=== PATIENT | female | born 1975 | race Caucasian/White ===

== ENCOUNTER 2020-02-04 07:09 | Outpatient (REF) | payer OTHER, SELFPAY ==
[2020-02-04 08:01] LABS: MANUAL DIFF FLAG NO
[2020-02-04 08:09] LABS: Basophils Percent Auto 0.7 % (0-2); Eosinophils Absolute Auto 0.1 X10*3/uL (0.0-0.4); Eosinophils Percent Auto 2.1 % (0-4); Hematocrit 43.2 % (37-47); Hemoglobin 14.4 g/dl (12.0-16.0); Imm Gran Abs Auto 0.01 X10*3/uL (0.00-0.03); Imm Gran Pct Auto 0.2 % (0.0-0.4); Lymphocytes Absolute Auto 1.3 X10*3/uL (1.2-4.9); Lymphocytes Percent Auto 30.2 % (20-40); Mean Corpuscular HGB Conc 33.3 g/dl (31.0-35.0); Mean Corpuscular Hemoglobin 31.6 pg (27.0-33.0); Mean Corpuscular Volume 94.9 fL (80-98); Mean Platelet Volume 10.5 fL (9.4-12.3); Monocytes Absolute Auto 0.3 X10*3/uL (0.1-1.2); Monocytes Percent Auto 7.4 % (2-11); Neutrophils Absolute Auto 2.6 X10*3/uL (2.0-8.3); Neutrophils Percent Auto 59.4 % (45-73); Platelet Count 225 X10*3/uL (160-400); Red Blood Count 4.55 X10*6/uL (4.20-5.50); Red Cell Distribution Width 12.2 % (11.0-16.0); White Blood Count 4.3 X10*3/uL (4.8-10.8)
[2020-02-04 08:32] LABS: Alanine Aminotransferase 16 U/L (0-31); Albumin Level 4.7 g/dL (3.5-5.0); Alkaline Phosphatase 42 U/L (39-117); Aspartate Amino Transferase 19 U/L (5-31); Bilirubin Direct 0.3 mg/dL (0.0-0.5); Bilirubin Total 0.9 mg/dL (0.0-1.0)
== END 2020-02-04 07:10 | disposition home or self-care (01) ==
LOC: HO.LAB 07:09
PROVIDERS: PCP Internal Medicine; Visit Provider Psychiatry & Neurology Neurology
DX: H46.9 Unspecified optic neuritis (principal)
CPT/HCPCS: 36415; 80076; 85025

== ENCOUNTER 2020-05-12 08:22 | Outpatient (REF) | payer OTHER, SELFPAY ==
[2020-05-12 08:58] LABS: MANUAL DIFF FLAG NO
[2020-05-12 09:09] LABS: Basophils Percent Auto 0.4 % (0-2); Eosinophils Absolute Auto 0.1 X10*3/uL (0.0-0.4); Eosinophils Percent Auto 1.2 % (0-4); Hematocrit 40.8 % (37-47); Hemoglobin 13.6 g/dl (12.0-16.0); Imm Gran Abs Auto 0.02 X10*3/uL (0.00-0.03); Imm Gran Pct Auto 0.4 % (0.0-0.4); Lymphocytes Absolute Auto 1.3 X10*3/uL (1.2-4.9); Mean Corpuscular HGB Conc 33.3 g/dl (31.0-35.0); Mean Corpuscular Hemoglobin 30.8 pg (27.0-33.0); Mean Corpuscular Volume 92.5 fL (80-98); Mean Platelet Volume 9.4 fL (9.4-12.3); Monocytes Absolute Auto 0.5 X10*3/uL (0.1-1.2); Monocytes Percent Auto 10.4 % (2-11); Neutrophils Absolute Auto 3.2 X10*3/uL (2.0-8.3); Neutrophils Percent Auto 61.6 % (45-73); Platelet Count 287 X10*3/uL (160-400); Red Blood Count 4.41 X10*6/uL (4.20-5.50); Red Cell Distribution Width 12.5 % (11.0-16.0); White Blood Count 5.1 X10*3/uL (4.8-10.8)
[2020-05-12 09:28] LABS: Alanine Aminotransferase 19 U/L (0-31); Albumin Level 4.5 g/dL (3.5-5.0); Alkaline Phosphatase 39 U/L (39-117); Anion Gap 14 (12-20); Aspartate Amino Transferase 18 U/L (5-31); Bilirubin Total 0.4 mg/dL (0.0-1.0); Blood Urea Nitrogen 9 mg/dL (9-16); Calcium 9.1 mg/dL (8.4-10.2); Carbon Dioxide 27 mmol/L (22-29); Chloride 101 mmol/L (96-108); Cholesterol 163 mg/dL; Estimated Glomerular Filt Rate > 60; Glucose Random 93 mg/dL (60-115); HDL Cholesterol 83 mg/dL; LDL Cholesterol Calculated 74 mg/dl; Magnesium 2.1 mg/dL (1.6-2.6); Potassium 4.8 mmol/l (3.3-5.1); Sodium 137 mmol/L (135-145); Total Protein 6.7 g/dL (6.5-8.0); Triglycerides 31 mg/dL
[2020-05-12 09:30] LABS: Glucose Urine UA NEG (NEG); Leukocyte Esterase Urine NEG (NEG); Nitrite Urine NEG (NEG); PH 5.5 (5.0-8.0); Specific Gravity - Urine <= 1.005 (1.005-1.025); Urine Blood 1+ (NEG); Urine Ketones 5 MG/DL (NEG); Urine Protein NEG (NEG-TRACE)
[2020-05-12 09:31] LABS: Appearance Urine CLEAR; Color Urine STRAW
[2020-05-12 09:44] LABS: Bacteria Urine TRACE /LPF; RBC Urine 0-2 /HPF (0); Squamous Epithelial Cell Urine 2+ /LPF; WBC Urine 0-2 /HPF (0-4)
[2020-05-12 09:53] LABS: Free T4 (Free Thyroxine) 1.09 ng/dL (0.71-1.85); Thyroid Stimulating Hormone 2.62 uIU/mL (0.32-4.0); Vitamin D 25-OH Total 36.8 ng/mL (>30)
[2020-05-12 09:58] LABS: Erythrocyte Sedimentation Rate 2 MM/HR (0-20)
[2020-05-12 10:11] LABS: Folate > 20.0 ng/mL (> or = 4.0); Vitamin B12 745 pg/mL (200-900)
== END 2020-05-12 08:23 | disposition home or self-care (01) ==
LOC: HO.LAB 08:22
PROVIDERS: PCP Internal Medicine; Visit Provider Internal Medicine
DX: G35 Multiple sclerosis (principal); E78.00 Pure hypercholesterolemia, unspecified
CPT/HCPCS: 36415; 80053; 80061; 81001; 82306; 82607; 82746; 83735; 84439; 84443; 85025; 85652

== ENCOUNTER 2020-05-31 08:14 | Outpatient (REF) | payer OTHER, SELFPAY ==
[2020-05-31 09:11] LABS: Urine Cytology See Pathology rpt
[2020-05-31 09:37] LABS: Glucose Urine UA NEG (NEG); Leukocyte Esterase Urine NEG (NEG); Nitrite Urine NEG (NEG); PH 7.5 (5.0-8.0); Urine Blood NEG (NEG); Urine Ketones NEG (NEG); Urine Protein NEG (NEG-TRACE)
[2020-05-31 09:58] LABS: Appearance Urine HAZY; Color Urine YELLOW
[2020-05-31 10:05] LABS: Mucus Urine 3+ /LPF; RBC Urine 0 /HPF (0); Squamous Epithelial Cell Urine 3+ /LPF; WBC Urine 0 /HPF (0-4)
== END 2020-05-31 08:15 | disposition home or self-care (01) ==
LOC: HO.LAB 08:14
PROVIDERS: PCP Internal Medicine; Visit Provider Internal Medicine
DX: R31.9 Hematuria, unspecified (principal); G35 Multiple sclerosis
CPT/HCPCS: 81001; 88112

== ENCOUNTER 2020-07-25 11:48 | Outpatient (REF) | payer OTHER, SELFPAY ==
--- NOTE | ~2020-07-25 | MR_ITS ---
EXAMINATION: MR BRAIN WITHOUT AND WITH CONTRAST CLINICAL INFORMATION: Multiple sclerosis. COMPARISON: Brain MRI 09/07/2019. TECHNIQUE: Multiplanar, multisequence imaging of the brain was performed before and after the intravenous administration of 7 mL of Gadavist. FINDINGS: A mild burden of supratentorial demyelinating plaques are again identified. No definite new plaques are seen compared with the 09/07/2019 exam. The enhancement about the left periatrial plaques has resolved. No new enhancement has developed. Developmental venous anomalies are seen within the right frontal lobe and left inferior temporal lobe. There is no acute infarction. No diffusion restricting plaques are seen. The ventricles are stable in size and configuration without evidence of progressive volume loss. There is no mass or extra-axial fluid collection. The major arterial flow voids are preserved at the skull base. The extracranial structures are within normal limits. MR/MR head/brain wo/w con IMPRESSION: Stable appearance of mild burden of demyelinating plaques within the supratentorial white matter. No new plaques have developed. Interval resolution of enhancement about the left periatrial plaque. No enhancing plaques are currently present.
== END 2020-07-25 11:49 | disposition home or self-care (01) ==
LOC: HO.MRI 11:48
PROVIDERS: Visit Provider Psychiatry & Neurology Neurology
DX: G35 Multiple sclerosis (principal)
CPT/HCPCS: 70553; A9585

== ENCOUNTER 2020-07-31 08:47 | Outpatient (REF) | payer OTHER, SELFPAY ==
[2020-07-31 09:43] LABS: MANUAL DIFF FLAG NO
[2020-07-31 10:00] LABS: Basophils Percent Auto 0.6 % (0-2); Eosinophils Absolute Auto 0.1 X10*3/uL (0.0-0.4); Eosinophils Percent Auto 1.4 % (0-4); Hematocrit 40.6 % (37-47); Hemoglobin 13.6 g/dl (12.0-16.0); Imm Gran Abs Auto 0.01 X10*3/uL (0.00-0.03); Imm Gran Pct Auto 0.2 % (0.0-0.4); Lymphocytes Absolute Auto 1.2 X10*3/uL (1.2-4.9); Lymphocytes Percent Auto 23.6 % (20-40); Mean Corpuscular HGB Conc 33.5 g/dl (31.0-35.0); Mean Corpuscular Hemoglobin 30.8 pg (27.0-33.0); Mean Corpuscular Volume 92.1 fL (80-98); Mean Platelet Volume 10.2 fL (9.4-12.3); Monocytes Absolute Auto 0.4 X10*3/uL (0.1-1.2); Monocytes Percent Auto 8.4 % (2-11); Neutrophils Absolute Auto 3.4 X10*3/uL (2.0-8.3); Neutrophils Percent Auto 65.8 % (45-73); Platelet Count 268 X10*3/uL (160-400); Red Blood Count 4.41 X10*6/uL (4.20-5.50); Red Cell Distribution Width 12.3 % (11.0-16.0); White Blood Count 5.1 X10*3/uL (4.8-10.8)
[2020-08-13 22:57] LABS: JCV Antibody NEGATIVE; JCV Index Value 0.18
== END 2020-07-31 08:48 | disposition home or self-care (01) ==
LOC: HO.LAB 08:47
PROVIDERS: PCP Internal Medicine; Visit Provider Psychiatry & Neurology Neurology
DX: G35 Multiple sclerosis (principal)
CPT/HCPCS: 36415; 85025; 86711

== ENCOUNTER 2020-10-09 10:57 | Outpatient (REF) | payer OTHER, SELFPAY ==
[2020-10-09 12:20] LABS: HBS Num1 0.64 mIU/mL (0-7.99); HBc Num1 0.02 S/CO (0.00-0.79); Hepatitis B Core Antibody Nonreactive (Nonreactive); ~HepC Num1 0.06 S/CO (0.00-0.79); ~Hepatitis B Surface Antibody NONREACTIVE (Nonreactive); ~Hepatitis C Antibody Nonreactive (Nonreactive)
[2020-10-09 12:23] LABS: HBsAGNum1 0.22 S/CO (0.00-0.99); Hepatitis B Surface Antigen Negative (Negative)
[2020-10-09 12:58] LABS: Glucose Urine UA NEG (NEG); Leukocyte Esterase Urine NEG (NEG); Nitrite Urine NEG (NEG); Urine Blood 3+ (NEG); Urine Ketones NEG (NEG); Urine Protein NEG (NEG-TRACE)
[2020-10-09 12:59] LABS: Appearance Urine HAZY; Color Urine YELLOW
[2020-10-09 13:46] LABS: Mucus Urine 1+ /LPF; Squamous Epithelial Cell Urine 3+ /LPF; WBC Urine 0 /HPF (0-4)
[2020-10-10 22:18] LABS: Rubella IgG Antibody 1.88 Index
[2020-10-13 11:53] LABS: TS Negative Control Passed; TS Panel A 0; TS Panel B 0; TS Positive Control Passed; TSpotTB Negative (SeeBelow)
== END 2020-10-09 10:58 | disposition home or self-care (01) ==
LOC: HO.LAB 10:57
PROVIDERS: PCP Internal Medicine; Visit Provider Internal Medicine
DX: Z02.0 Encounter for examination for admission to educational institution (principal); R94.5 Abnormal results of liver function studies; R31.9 Hematuria, unspecified
CPT/HCPCS: 36415; 81001; 86481; 86704; 86706; 86735; 86762; 86765; 86787; 86803; 87340

== ENCOUNTER 2022-01-02 08:20 | Outpatient (REF) | payer BC, SELFPAY ==
[2022-01-02 08:49] LABS: MANUAL DIFF FLAG NO
[2022-01-02 10:26] LABS: Basophils Percent Auto 0.5 % (0-2); Eosinophils Absolute Auto 0.2 X10*3/uL (0.0-0.4); Eosinophils Percent Auto 3.3 % (0-4); Hematocrit 45.2 % (37.0-47.0); Imm Gran Abs Auto 0.02 X10*3/uL (0.00-0.03); Imm Gran Pct Auto 0.3 % (0.0-0.4); Lymphocytes Absolute Auto 0.9 X10*3/uL (1.2-4.9); Lymphocytes Percent Auto 13.7 % (20-40); Mean Corpuscular HGB Conc 33.2 g/dl (31.0-35.0); Mean Corpuscular Hemoglobin 30.4 pg (27.0-33.0); Mean Corpuscular Volume 91.7 fL (80.0-98.0); Mean Platelet Volume 9.9 fL (9.4-12.3); Monocytes Absolute Auto 0.7 X10*3/uL (0.1-1.2); Monocytes Percent Auto 10.8 % (2-11); Neutrophils Absolute Auto 4.5 x10*3/uL (2.0-8.3); Neutrophils Percent Auto 71.4 % (45-73); Platelet Count 205 X10*3/uL (160-400); Red Blood Count 4.93 X10*6/uL (4.20-5.50); Red Cell Distribution Width 12.3 % (11.0-16.0); White Blood Count 6.3 X10*3/uL (4.8-10.8)
[2022-01-02 10:32] LABS: Appearance Urine Clear; Color Urine Yellow; Glucose Urine UA Negative (Negative); Leukocyte Esterase Urine Trace (Negative); Nitrite Urine Negative (Negative); PH 7.5 (5.0-9.0); Specific Gravity - Urine <= 1.005 (1.005-1.025); Urine Blood Negative (Negative); Urine Ketones Negative (Negative); Urine Protein Negative (Neg-Trace)
[2022-01-02 10:37] LABS: Bacteria Urine None Seen (None Seen); Hyaline Casts Urine 0-2 /LPF (0-2); RBC Urine 0-2 /HPF (0-2); Squamous Epithelial Cell Urine 0-2 /HPF (0-2); WBC Urine 0-5 /HPF (0-5)
[2022-01-02 11:11] LABS: Free T4 (Free Thyroxine) 0.99 ng/dL (0.71-1.85); Thyroid Stimulating Hormone 1.78 uIU/mL (0.32-4.0); Vitamin D 25-OH Total 36.6 ng/mL (>30)
[2022-01-02 11:15] LABS: Alanine Aminotransferase 21 U/L (0-31); Albumin Level 4.7 g/dL (3.5-5.0); Alkaline Phosphatase 51 U/L (39-117); Anion Gap 18 (12-20); Aspartate Amino Transferase 19 U/L (5-31); Bilirubin Total 0.6 mg/dL (0.0-1.0); Blood Urea Nitrogen 9 mg/dL (9-16); Calcium 9.3 mg/dL (8.4-10.2); Carbon Dioxide 24 mmol/L (22-29); Chloride 101 mmol/L (96-108); Cholesterol 192 mg/dL; Estimated Glomerular Filt Rate > 60; Glucose Random 69 mg/dL (60-115); HDL Cholesterol 71 mg/dL; LDL Cholesterol Calculated 114 mg/dl; Potassium 4.3 mmol/L (3.3-5.1); Sodium 139 mmol/L (135-145); Total Protein 7.5 g/dL (6.5-8.0); Triglycerides 35 mg/dL
[2022-01-02 16:12] LABS: Folate > 20.0 ng/mL (> or = 4.0); Vitamin B12 510 pg/mL (200-900)
== END 2022-01-02 08:21 | disposition home or self-care (01) ==
LOC: HO.LAB 08:20
PROVIDERS: PCP Internal Medicine; Visit Provider Internal Medicine
DX: G35 Multiple sclerosis (principal); E78.00 Pure hypercholesterolemia, unspecified
CPT/HCPCS: 36415; 80053; 80061; 81001; 82306; 82607; 82746; 84439; 84443; 85025

== ENCOUNTER 2022-08-30 06:24 | Day surgery (SDC) | payer BC, SELFPAY ==
--- NOTE | 2022-08-27 13:21 | HO.ANESPROP2 ---
Documented by User: Sommer Luevano NP 08/27/22 13:21 HPI - Anesthesia Eval Consult details Narrative: 47yo F for Colonoscopy PMFSH Active Problems Active Problems: All Active Problems (Updated 08/27/22 @ 12:36 by Corinne Troy RN) Annual physical exam (Acute) Hematuria (Acute) School health examination (Acute) Breast cancer screening by mammogram (Acute) Colon cancer screening (Acute) Multiple sclerosis (Acute) Past Medical History Medical History Allergic reaction Kidney stone Leukopenia Multiple sclerosis Optic neuritis Family History Family History (Updated 12/08/21 @ 16:54 by Norberto Castillo MD) Father Myocardial infarction Mother No problems noted. Paternal Aunt Breast cancer Heart disease Maternal Grandmother No problems noted. Paternal Uncle Heart disease Surgical History Surgical History H/O arthroscopy of left knee History of section Uterine polyp Varicose veins of both lower extremities Social History Social History (Updated 12/08/21 @ 16:55 by Norberto Castillo MD) Housing: House Alcohol intake: current Alcohol intake frequency: a few times a week Patient Tobacco Use Status: Never used Tobacco Second Hand Smoke Exposure: No Use of substances other than those prescribed or required for medical reasons: Yes Substance Use Type Other:: cbd Substance Use Frequency: Daily Are you DNR?: No Advance Directives: No Advance Directives Information Provided: Yes service: No Current occupational status: unemployed Cognitive needs: No Hearing needs: No Vision needs: Yes Meds Allergies Allergy/AdvReac Type Severity Reaction Status Date / Time oxycodone AdvReac Intermediate dizzy Verified 08/30/22 06:59 Home Medications Medication Instructions Recorded Confirmed Last Taken Type cholecalciferol (vitamin D3) 25 25 mcg PO DAILY 01/23/20 08/30/22 08/23/22 History mcg (1,000 unit) capsule flaxseed oil 1,000 mg capsule 1,000 mg PO DAILY 01/23/20 08/30/22 08/23/22 History aspirin 81 mg tablet,delayed 81 mg PO DAILY 04/28/20 08/30/22 08/23/22 History release calcium carbonate 600 mg calcium 600 mg PO DAILY 04/28/20 08/30/22 08/23/22 History (1,500 mg) tablet cyanocobalamin (vitamin B-12) 1,000 mcg PO DAILY 04/28/20 08/30/22 08/23/22 History 1,000 mcg capsule multivitamin 1 tab PO DAILY 04/28/20 08/30/22 08/23/22 History omega-3 acid ethyl esters 1 gram 1 cap PO DAILY 04/28/20 08/30/22 08/23/22 History capsule levonorgestrel-ethinyl estradiol 1 tab PO DAILY 08/30/22 08/30/22 Unknown History 0.1 mg-20 mcg tablet (Vienva) natalizumab 300 mg/15 mL 300 mg IV Q4W 08/30/22 08/30/22 Unknown History intravenous solution (Tysabri) Exam Exam Date and Time: August 27, 2022 132 Assessment and Plan Assessment Anesthesia Assessment: Chart Reviewed Documented by User: Lilia Olson DO 08/30/22 07:24 [facility] Past Medical History Medical History Allergic reaction Kidney stone Leukopenia Multiple sclerosis Optic neuritis Family History Family History (Updated 12/08/21 @ 16:54 by Norberto Castillo MD) Father Myocardial infarction Mother No problems noted. Paternal Aunt Breast cancer Heart disease Maternal Grandmother No problems noted. Paternal Uncle Heart disease Family history of problems with anesthesia: No Surgical History Surgical History H/O arthroscopy of left knee History of section Uterine polyp Varicose veins of both lower extremities History of Problems with Anesthesia: No Social History Social History (Updated 12/08/21 @ 16:55 by Norberto Catsillo MD) Housing: House Alcohol intake: current Alcohol intake frequency: a few times a week Patient Tobacco Use Status: Never used Tobacco Second Hand Smoke Exposure: No Use of substances other than those prescribed or required for medical reasons: Yes Substance Use Type Other:: cbd Substance Use Frequency: Daily Are you DNR?: No Advance Directives: No Advance Directives Information Provided: Yes service: No Current occupational status: unemployed Cognitive needs: No Hearing needs: No Vision needs: Yes Meds Allergies Allergy/AdvReac Type Severity Reaction Status Date / Time oxycodone AdvReac Intermediate dizzy Verified 08/30/22 06:59 Home Medications Medication Instructions Recorded Confirmed Last Taken Type cholecalciferol (vitamin D3) 25 25 mcg PO DAILY 01/23/20 08/30/22 08/23/22 History mcg (1,000 unit) capsule flaxseed oil 1,000 mg capsule 1,000 mg PO DAILY 01/23/20 08/30/22 08/23/22 History aspirin 81 mg tablet,delayed 81 mg PO DAILY 04/28/20 08/30/22 08/23/22 History release calcium carbonate 600 mg calcium 600 mg PO DAILY 04/28/20 08/30/22 08/23/22 History (1,500 mg) tablet cyanocobalamin (vitamin B-12) 1,000 mcg PO DAILY 04/28/20 08/30/22 08/23/22 History 1,000 mcg capsule multivitamin 1 tab PO DAILY 04/28/20 08/30/22 08/23/22 History omega-3 acid ethyl esters 1 gram 1 cap PO DAILY 04/28/20 08/30/22 08/23/22 History capsule levonorgestrel-ethinyl estradiol 1 tab PO DAILY 08/30/22 08/30/22 Unknown History 0.1 mg-20 mcg tablet (Vienva) natalizumab 300 mg/15 mL 300 mg IV Q4W 08/30/22 08/30/22 Unknown History intravenous solution (Tysabri) Exam Exam Date and Time: August 30, [id number] Airway Mallampati Class: III TM Dist: >3cm Neck ROM: Full Loose/Missing/Broken Teeth: No Heart: S1S2 Lungs: CTAB Assessment and Plan Assessment Anesthesia Assessment: Anesthesia Plan Discussed and Chart Reviewed Final Anesthetic Review Family History of Problems with Anesthesia: No History of Problems with Anesthesia: No NPO: Yes ASA Class: II Final Preanesthetic Review: No Changes in Pt Med Stat, Meds/Allgs Chart Reviewed and Consent Obtained/Reviewed Patient Risk: Low Procedure Risk: Low Anesthetic Plan Anesthetic Plan: MAC: and Agree w/ Assess. and Plan Disposition: Standard PACU
[2022-08-30 06:47] LABS: UPreg QC Valid YES; Urine Pregnancy NEGATIVE (NEGATIVE)
[2022-08-30 07:01] VITALS: BMI 31.2
[2022-08-30 07:06] VITALS: BP 123/73; PULSE 75; RESP 15; TEMP 36.9; O2SAT 98
[2022-08-30] MEDS: Lactated Ringers 1,000 ML 100 ML IVCONT (07:18)
[2022-08-30 08:20] VITALS: BP 117/63; PULSE 77; RESP 16; TEMP 36.7; O2SAT 98
--- NOTE | 2022-08-30 08:25 | PM.OP ---
Brief Operative Note Date of Service: 08/30/22 Pre-op diagnosis: Screening Post-op diagnosis: other (Diverticulosis) Procedure: Colonoscopy to the cecum and TI Surgeon: Carlitos Smith Anesthesia: MAC Was an Director Network Development used for this Procedure?: No Estimated blood loss (mL): 0 Pathology: none sent Condition: stable Disposition: PACU
[2022-08-30 08:35] VITALS: BP 108/79; PULSE 80; RESP 16; TEMP 36.7; O2SAT 100
--- NOTE | 2022-09-01 09:28 | OP_ITS ---
DATE OF SERVICE: 08/30/2022 SURGEON: Carlitos Smith MD INDICATIONS: The patient presents for evaluation of colorectal cancer screening. Full consent was obtained from her for this, including risks of bleeding and perforation. PREOPERATIVE DIAGNOSIS: Colorectal cancer screening. POSTOPERATIVE DIAGNOSIS: PROCEDURE PERFORMED: Colonoscopy to the cecum and terminal ileum. ESTIMATED BLOOD LOSS: COMPLICATIONS: ANESTHESIA: Monitored anesthesia care. ASSISTANTS: SPECIMENS: POSTOPERATIVE DIAGNOSES: Colorectal cancer screening, sigmoid diverticulosis and internal hemorrhoids. DESCRIPTION OF PROCEDURE: The patient was placed in the left lateral decubitus position. The digital rectal exam revealed no abnormalities. The Olympus video pediatric colonoscope was entered into the rectum and advanced easily to the cecum. Once in the cecum, I did identify a normal-appearing cecal pouch with appendiceal orifice and a normal-appearing ileocecal valve. The terminal ileum was cannulated and appeared normal. The scope was withdrawn back in the colon. The entire cecum and ileocecal valve appeared normal without any sign of mass nor ulceration. Scope was then slowly withdrawn assessing all mucosal surfaces carefully. Preparation was excellent. I did not visualize any sign of polyps, colitis, nor angiodysplasia. There was a mild amount of sigmoid diverticulosis. In the rectum, the scope was retroflexed visualizing internal hemorrhoids, but no other pathology. The rectal mucosa appeared normal. The scope was straightened out and withdrawn from the patient. She tolerated the procedure well and was returned to the recovery area in stable condition. IMPRESSION: 1. Diverticulosis. 2. Internal hemorrhoids. PLAN: Given today's negative exam and negative family history, I would recommend a followup colonoscopy in 10 years for further screening. She will otherwise see me on a p.r.n. basis. MD MICHELLE Ramires/KATTY / [id number] MTDSandra
== END 2022-08-30 08:56 | disposition home or self-care (01) ==
PROVIDERS: Nurse Practitioner; PCP Internal Medicine; Visit Provider Internal Medicine
PROC: 0DJD8ZZ Inspection of Lower Intestinal Tract, Via Natural or Artificial Opening Endoscopic (ICD-10-PCS; CPT 45378; principal; 2022-08-30 07:30)
DX: Z12.11 Encounter for screening for malignant neoplasm of colon (principal); K57.30 Diverticulosis of large intestine without perforation or abscess without bleeding; K64.8 Other hemorrhoids; G35 Multiple sclerosis; Z79.899 Other long term (current) drug therapy; Z87.442 Personal history of urinary calculi
CPT/HCPCS: 45378; 81025

== ENCOUNTER 2022-12-30 13:40 | Outpatient (AMB) | payer BC, SELFPAY ==
[2022-12-30 13:44] VITALS: BP 110/68; PULSE 77; O2SAT 99; BMI 34.0
--- NOTE | 2022-12-30 13:44 | MHC.PC.OV ---
Vital Signs 12/30/22 13:44 Height 5 ft Weight 174 lb BMI 34.0 BP 110/68 Blood Pressure Location Lt brachial Position Sitting Pulse 77 Pulse Source Pulse Oximeter Pulse Oximetry (%) 99 Oxygen Delivery Method Room Air Intake Visit Reasons: PE Allergies oxycodone Adverse Reaction (Intermediate, Verified 08/30/22 06:59) dizzy Medication List - Last Reconciled 12/30/22 by Norberto Castillo MD calcium carbonate 600 mg PO DAILY cholecalciferol (vitamin D3) 25 mcg PO DAILY cyanocobalamin (vitamin B-12) 1,000 mcg PO DAILY epinephrine 0.3 mg (0.3 mL) IM Q10M PRN flaxseed oil 1,000 mg PO DAILY levonorgestrel-ethinyl estrad 0.1-20 mg-mcg (Vienva) 1 tab PO DAILY multivitamin 1 tab PO DAILY natalizumab (Tysabri) 300 mg IV Q4W omega-3 acid ethyl esters 1 cap PO DAILY Tobacco use date assessed: 12/30/22 HPI PE HPI Details 47-year-old obese female with a history of multiple sclerosis coming in for physical exam. Last seen last year and was advised colon cancer screening as well as breast cancer screening. Patient was advised blood work also. Patient had colonoscopy done August 2022 10 years. Did in the notes also patient was seen by Rheumatology for the positive MAGALY February 2022. Patient was seen by the neurology's for multiple sclerosis placed on Tysabri and Vumerity. Patient in September had an MRI of the cervical spine showing stable high T2 signal lesions in the C3-C4 and T1 vertebral bodies compatible with multiple sclerosis. Neurology [facility] stopped the vumerity. due to lesions on spine. patient has not seen rheumatology. Patient has incotinence and was placed on oxybutinin had [place] and so stopped. hold off med. tripped on fall 2 months ago , feels unbalance has night sweats [facility] Medical History (Updated 12/30/22 @ 14:19 by Norberto Castillo MD) Colon cancer screening School health examination Annual physical exam Kidney stone Allergic reaction Leukopenia Optic neuritis Multiple sclerosis Surgical History Varicose veins of both lower extremities Uterine polyp History of section H/O arthroscopy of left knee Family History (Updated 12/08/21 @ 16:54 by Norberto Castillo MD) Father Myocardial infarction Mother No problems noted. Paternal Aunt Breast cancer Heart disease Maternal Grandmother No problems noted. Paternal Uncle Heart disease Social History (Updated 12/30/22 @ 14:16 by Norberto Castillo MD) Housing: House Alcohol intake: current Alcohol intake frequency: a few times a week Patient Tobacco Use Status: Never used Tobacco Second Hand Smoke Exposure: No service: No Current occupational status: unemployed Cognitive needs: No Hearing needs: No Vision needs: Yes Questionnaire PHQ-9 Over the last 2 weeks, how often have you been bothered by any of the following problems? 1. Little interest or pleasure in doing things: not at all 2. Feeling down, depressed, or hopeless: not at all 3. Trouble falling or staying asleep, or sleeping too much: not at all 4. Feeling tired or having little energy: not at all 5. Poor appetite or overeating: not at all 6. Feeling bad about yourself - or that you are a failure or have let yourself or your family down: not at all 7. Trouble concentrating on things, such as reading the newspaper or watching television: not at all 8. Moving or speaking so slowly that other people could have noticed. Or the opposite - being so fidgety or restless that you have been moving around a lot more than usual: not at all 9. Thoughts that you would be better off or of hurting yourself in some way: not at all Total score: 0 Depression Screening Interpretation: Negative Source: Developed by Drs. Carlitos Posey, Pretty Sotomayor, Remy Lund and colleagues, with an educational lea from [employer]. Thrive Questionnaire Date Thrive assessed: 12/30/22 I am a: Patient What is your living situation today?: I have a steady place to live Within the past 12 months, did the food you bought not last and you didn't have the money to get more?: Never true Within the past 12 months, did you worry whether your food would run out before you got money to buy more?: Never true AUDIT C Alcohol Use Questionnaire (AUDIT-C) 1. How often do you have a drink containing alcohol?: 2-3 times a week 2. How many drinks containing alcohol do you have on a typical day when you are drinking?: 1 or 2 3. How often do you have six or more drinks on one occasion?: Never Total Score: 3 NORMA-7 AMB Questionnaire NORMA-7 Date NORMA - 7 assessed: 12/30/22 Feeling nervous, anxious, or on edge: 0 = Not at all Not being able to stop or control worryin = Not at all Worrying too much about different things: 0 = Not at all Trouble relaxin = Not at all Being so restless that it is hard to sit still: 0 = Not at all Becoming easily annoyed or irritable: 0 = Not at all Feeling afraid as if something awful might happen: 0 = Not at all Total NORMA-7 score (0-4 normal; 5-9 mild; 10-14 moderate; 15-21 severe): 0 Source: Developed by Drs. Carlitos Posey, Pretty Sotomayor, Remy Lund and colleagues, with an educational lea from [employer]. Review of Systems Const Denies poor appetite and Denies weakness Eyes Denies no additional complaints ENT Reports Normal hearing present, Denies dizziness, Denies nasal congestion, Denies tinnitus and Denies sore throat Card Denies chest pain, Denies syncope, Denies rapid heart rate and Denies dyspnea Resp Denies cough and Denies dyspnea GI Denies change in stool character, Reports constipation, Denies diarrhea, Denies nausea and Denies vomiting Denies urinary frequency, Denies difficulty voiding and Denies dysuria Neuro Reports Normal hearing present, Denies confusion, Denies dizziness, Denies syncope and Denies weakness Psych Denies confusion Physical exam (Primary Care) Vital Signs: Last Vital Signs Pulse 77 12/30/22 13:44 BP 110/68 12/30/22 13:44 Pulse Ox 99 12/30/22 13:44 Oxygen Delivery Method Room Air 12/30/22 13:44 BMI result Body Mass Index 34.0 Tobacco/Smoking Status: Tobacco use Status Tobacco use date assessed 12/30/22 12/30/22 13:49 Patient Tobacco Use Status Never used Tobacco 12/30/22 13:44 PHQ-9: PHQ-9 Score PHQ-9: Total score 0 12/30/22 13:49 Depression Screening Interpretation: Negative Thrive Assessment: Date of Thrive Assessment Date Thrive assessed 12/30/22 12/30/22 13:49 Const General: No confusion Orientation/consciousness: No confusion HENMT Head: Yes normocephalic Ears: external ears normal and TM's normal bilaterally Face and sinus: Yes normal facial exam Mouth: moist mucous membranes Throat: Yes tonsils normal Eyes Conjunctivae: conjunctivae normal Pupils: Equal, round and reactive pupils present and Pupil accommodation reflex normal Direct Ophthalmoscopy: normal light reflex Neck Neck: No lymphadenopathy Thyroid: Thyroid normal Chest Chest palpation & inspection: normal inspection of the chest Resp Effort & Inspection: normal respiratory effort and no audible wheezes Auscultation: clear to auscultation bilaterally, no crackles, no wheezes and lung sounds not diminished Cardio Rate: regular rate Rhythm: regular rhythm Peripheral pulses: radial pulses present and dorsalis pedis present GI Palpation (GI): no masses Auscultation: normal bowel sounds and normoactive bowel sounds Rectal Exam - Female: deferred Skin General skin exam: no rashes or lesions noted Rashes: no rashes Neuro General: No confusion Cranial nerves: Yes Equal, round and reactive pupils present and Yes Normal hearing present Cognition (Neuro): normal cognition Gait exam (Neuro): Normal gait present Motor exam (neuro): 5/5 motor strength present throughout Deep tendon reflexes (DTR's): Right brachioradialis reflex intensity grade: 2+, Left brachioradialis reflex intensity grade: 2+, Right patellar reflex intensity grade: 2+ and Left patellar reflex intensity grade: 2+ Extrem General: No edema Assessment and Plan Assessment & Plan (1) Annual physical exam: Code(s): Z00.00 - Encounter for general adult medical examination without abnormal findings (2) Multiple sclerosis: Comment: January 2018 vision problem MRI July 2020 Code(s): G35 - Multiple sclerosis Plan: Continue to follow-up with Neurology patient has been placed on Tysabri (3) Positive MAGALY (antinuclear antibody): Code(s): R76.8 - Other specified abnormal immunological findings in serum Plan: Patient was referred to rheumatology (4) Hearing difficulty: Code(s): H91.90 - Unspecified hearing loss, unspecified ear Orders: Orders Complete Blood Count Auto Diff Today G35 - Multiple sclerosis Comprehensive Met. Panel Today G35 - Multiple sclerosis Thyroid Stimulating Hormone Today G35 - Multiple sclerosis Lipid Panel Today E78.00 - Pure hypercholesterolemia, unspecified, G35 - Multiple sclerosis UA w Microscopic Today G35 - Multiple sclerosis Free T4 (Free Thyroxine) Today G35 - Multiple sclerosis Vitamin B12 and Folate Today G35 - Multiple sclerosis Vitamin D 25-OH Total Today G35 - Multiple sclerosis Referrals Speech and Hearing Referral H91.90 - Unspecified hearing loss, unspecified ear Coding Level of Care Code Est Pt Prev Care 40-64y(40024) Diagnoses Annual physical exam Z00.00 Multiple sclerosis G35 Positive MAGALY (antinuclear antibody) R76.8 Hearing difficulty H91.90
== END 2022-12-30 14:39 | disposition home or self-care (01) ==
PROVIDERS: PCP Internal Medicine; Visit Provider Internal Medicine
DX: Z00.00 Encounter for general adult medical examination without abnormal findings (principal); G35 Multiple sclerosis; R76.8 Other specified abnormal immunological findings in serum; H91.90 Unspecified hearing loss, unspecified ear
CPT/HCPCS: 99396

== ENCOUNTER 2023-01-22 08:39 | Outpatient (REF) | payer BC, SELFPAY ==
[2023-01-22 10:06] LABS: Appearance Urine Clear; Color Urine Yellow; Glucose Urine UA Negative (Negative); Leukocyte Esterase Urine Trace (Negative); Nitrite Urine Negative (Negative); PH 7.5 (5.0-9.0); Specific Gravity - Urine <= 1.005 (1.005-1.025); UMIC TRIGGER UA YES; Urine Blood Negative (Negative); Urine Ketones Negative (Negative); Urine Protein Negative (Neg-Trace)
[2023-01-22 10:12] LABS: Bacteria Urine None Seen (None Seen); Hyaline Casts Urine 0-2 /LPF (0-2); RBC Urine 0-2 /HPF (0-2); Squamous Epithelial Cell Urine 0-2 /HPF (0-2); WBC Urine 0-5 /HPF (0-5)
[2023-01-22 10:27] LABS: Alanine Aminotransferase 12 U/L (0-31); Albumin Level 4.5 g/dL (3.5-5.0); Alkaline Phosphatase 64 U/L (39-117); Aspartate Amino Transferase 14 U/L (5-31); Bilirubin Direct 0.2 mg/dL (0.0-0.5); Bilirubin Total 0.5 mg/dL (0.0-1.0); Total Protein 7.3 g/dL (6.5-8.0)
[2023-01-22 10:30] LABS: Alanine Aminotransferase 13 U/L (0-31); Albumin Level 4.5 g/dL (3.5-5.0); Alkaline Phosphatase 61 U/L (39-117); Aspartate Amino Transferase 18 U/L (5-31); Bilirubin Total 0.5 mg/dL (0.0-1.0); Blood Urea Nitrogen 13 mg/dL (9-16); Calcium 9.2 mg/dL (8.4-10.2); Chloride 104 mmol/L (96-108); Cholesterol 184 mg/dL (<200); Estimated Glomerular Filt Rate > 60; Glucose Random 85 mg/dL (60-115); HDL Cholesterol 59 mg/dL (>40); LDL Cholesterol Calculated 115 mg/dL (<100); Potassium 4.6 mmol/L (3.3-5.1); Sodium 137 mmol/L (135-145); Total Protein 7.6 g/dL (6.5-8.0); Triglycerides 54 mg/dL (<150)
[2023-01-22 10:41] LABS: Anion Gap 16 (12-20); Free T4 (Free Thyroxine) 0.95 ng/dL (0.71-1.85); Thyroid Stimulating Hormone 1.12 uIU/mL (0.32-4.0); Vitamin D 25-OH Total 36.8 ng/mL (>30)
[2023-01-22 10:55] LABS: Carbon Dioxide 21 mmol/L (22-29)
[2023-01-22 11:00] LABS: Folate 13.9 ng/mL (> or = 4.0); Vitamin B12 480 pg/mL (200-900)
[2023-01-31 05:03] LABS: JCV Antibody NEGATIVE; JCV Index Value 0.16
== END 2023-01-22 08:40 | disposition home or self-care (01) ==
LOC: HO.LAB 08:39
PROVIDERS: PCP Internal Medicine; Referring Provider Internal Medicine; Visit Provider Physician Assistant
DX: G35 Multiple sclerosis (principal); E78.00 Pure hypercholesterolemia, unspecified; Z79.899 Other long term (current) drug therapy
CPT/HCPCS: 36415; 80053; 80061; 80076; 81001; 82248; 82306; 82607; 82746; 84439; 84443; 86711

== ENCOUNTER 2023-05-10 08:58 | Outpatient (REF) | payer BC, SELFPAY | END 2023-05-10 08:59 | disposition home or self-care (01) | LOC: HO.SH 08:58 | PROVIDERS: Visit Provider Internal Medicine | DX: Z01.118 Encounter for examination of ears and hearing with other abnormal findings (principal); H93.293 Other abnormal auditory perceptions, bilateral | CPT/HCPCS: 92552; 92556 ==

== ENCOUNTER 2024-01-02 12:24 | Outpatient (AMB) | payer BC, SELFPAY ==
[2024-01-02 12:33] VITALS: BP 116/82; PULSE 81; O2SAT 98; BMI 36.3
--- NOTE | 2024-01-02 12:33 | MHC.PC.OV ---
Vital Signs 01/02/24 12:33 Height 5 ft Weight 186 lb BMI 36.3 BP 116/82 Blood Pressure Location Lt brachial Position Sitting Pulse 81 Pulse Source Pulse Oximeter Pulse Oximetry (%) 98 Oxygen Delivery Method Room Air Intake Visit Reasons: pe Web Programmer Required: No Accompanied by: Self / Same As Patient Allergies oxycodone Adverse Reaction (Intermediate, Verified 01/02/24 12:34) dizzy Medication List - Last Reconciled 01/02/24 by Norberto Castillo MD calcium carbonate 600 mg PO DAILY cholecalciferol (vitamin D3) 25 mcg PO DAILY cyanocobalamin (vitamin B-12) 1,000 mcg PO DAILY epinephrine 0.3 mg (0.3 mL) IM Q10M PRN flaxseed oil 1,000 mg PO DAILY levonorgestrel-ethinyl estrad 0.1-20 mg-mcg (Vienva) 1 tab PO DAILY multivitamin 1 tab PO DAILY natalizumab (Tysabri) 300 mg IV Q4W omega-3 acid ethyl esters 1 cap PO DAILY scopolamine base (Transderm-Scop) 1 patch transdermal Q3D PRN Tobacco use date assessed: 01/02/24 Dental Screening Dental Screen Date: 01/02/24 Did you have a dental visit in the last 12 months?: Yes Did you have a dental problem in the last 6 months where you did not have access to dental care?: No Was dental information given to patient?: Patient has dentist HPI pe HPI Details 48 year old obese female with multiple sclerosis coming in for physical exam. Patient is due for mammogram and has up-to-date with colonoscopy. Review of the notes in September was seen by Rheumatology no evidence of active inflammatory arthritis or autoimmune. occ vertigo [facility] Medical History (Updated 01/02/24 @ 12:48 by Norberto Castillo MD) Colon cancer screening School health examination Annual physical exam Kidney stone Allergic reaction Leukopenia Optic neuritis Multiple sclerosis Surgical History Varicose veins of both lower extremities Uterine polyp History of section H/O arthroscopy of left knee Family History (Updated 12/08/21 @ 16:54 by Norberto Castillo MD) Father Myocardial infarction Mother No problems noted. Paternal Aunt Breast cancer Heart disease Maternal Grandmother No problems noted. Paternal Uncle Heart disease Social History (Updated 01/02/24 @ 12:50 by Norberto Castillo MD) Housing: House Alcohol intake: current Alcohol intake frequency: a few times a week Comment: 5x a week 1 glass Patient Tobacco Use Status: Never used Tobacco Tobacco use type: Cigarette Years Smoked: occ CBD e-Cigarette/Vaping Use: Never Used Second Hand Smoke Exposure: No service: No Current occupational status: unemployed Cognitive needs: No Hearing needs: No Vision needs: Yes Questionnaire PHQ-9 Over the last 2 weeks, how often have you been bothered by any of the following problems? 1. Little interest or pleasure in doing things: not at all 2. Feeling down, depressed, or hopeless: not at all 3. Trouble falling or staying asleep, or sleeping too much: more than half the days 4. Feeling tired or having little energy: more than half the days 5. Poor appetite or overeating: not at all 6. Feeling bad about yourself - or that you are a failure or have let yourself or your family down: not at all 7. Trouble concentrating on things, such as reading the newspaper or watching television: not at all 8. Moving or speaking so slowly that other people could have noticed. Or the opposite - being so fidgety or restless that you have been moving around a lot more than usual: not at all 9. Thoughts that you would be better off or of hurting yourself in some way: not at all Total score: 4 Source: Developed by Drs. Carlitos Posey, Pretty Sotomayor, Remy Lund and colleagues, with an educational lea from [email or web address]. Thrive Questionnaire Date Thrive assessed: 12/26/23 I am a: Patient What is your living situation today?: I have a steady place to live Within the past 12 months, did the food you bought not last and you didn't have the money to get more?: Never true Within the past 12 months, did you worry whether your food would run out before you got money to buy more?: Never true Do you have trouble paying for medicines?: No Do you have trouble getting transportation to medical appointments?: No Do you have trouble paying your heating and electricity bill?: No Do you have trouble taking care of your child, family member or friend?: No Do you have trouble with day-to-day activities such as bathing, preparing meals, shopping, managing finances, etc.?: No Are you currently unemployed and looking for a job?: I choose not to answer this question Are you interested in more education?: No Please select the resources that you would like help with: None Currently or been in a relationship where the following occur: No concerns reported THRIVE Score: 0 AUDIT C Alcohol Use Questionnaire (AUDIT-C) 1. How often do you have a drink containing alcohol?: 2-3 times a week 2. How many drinks containing alcohol do you have on a typical day when you are drinking?: 1 or 2 3. How often do you have six or more drinks on one occasion?: Never Total Score: 3 NORMA-7 AMB Questionnaire NORMA-7 Date NORMA - 7 assessed: 01/02/24 Feeling nervous, anxious, or on edge: 0 = Not at all Not being able to stop or control worryin = Not at all Worrying too much about different things: 0 = Not at all Trouble relaxin = More than half the days Being so restless that it is hard to sit still: 0 = Not at all Becoming easily annoyed or irritable: 1 = Several days Feeling afraid as if something awful might happen: 1 = Several days Total NORMA-7 score (0-4 normal; 5-9 mild; 10-14 moderate; 15-21 severe): 4 Source: Developed by Drs. Carlitos Posey, Pretty Sotomayor, Remy Lund and colleagues, with an educational lea from [employer]. Review of Systems Const Denies poor appetite and Denies weakness Eyes Denies no additional complaints ENT Reports Normal hearing present, Denies dizziness, Denies nasal congestion, Denies tinnitus and Denies sore throat Card Denies chest pain, Denies syncope, Denies rapid heart rate and Denies dyspnea Resp Denies cough and Denies dyspnea GI Denies change in stool character, Reports constipation, Denies diarrhea, Denies nausea and Denies vomiting Denies urinary frequency, Denies difficulty voiding and Denies dysuria Neuro Reports Normal hearing present, Denies confusion, Denies dizziness, Denies syncope and Denies weakness Psych Denies confusion Physical exam (Primary Care) Vital Signs: Last Vital Signs Pulse 81 01/02/24 12:33 BP 116/82 01/02/24 12:33 Pulse Ox 98 01/02/24 12:33 Oxygen Delivery Method Room Air 01/02/24 12:33 BMI result Body Mass Index 36.3 Tobacco/Smoking Status: Tobacco use Status Tobacco use date assessed 01/02/24 01/02/24 12:36 Patient Tobacco Use Status Never used Tobacco 01/02/24 12:36 Tobacco use type Cigarette 01/02/24 12:36 e-Cigarette/Vaping Use Never Used 01/02/24 12:36 PHQ-9: PHQ-9 Score PHQ-9: Total score 4 01/02/24 12:36 Thrive Assessment: Date of Thrive Assessment Date Thrive assessed 12/26/23 01/02/24 12:36 Currently or been in a relationship where the following occur: No concerns reported Const General: No confusion Orientation/consciousness: No confusion HENMT Head: Yes normocephalic Ears: external ears normal and TM's normal bilaterally Face and sinus: Yes normal facial exam Mouth: moist mucous membranes Throat: Yes tonsils normal Eyes Conjunctivae: conjunctivae normal Pupils: Equal, round and reactive pupils present and Pupil accommodation reflex normal Direct Ophthalmoscopy: normal light reflex Neck Neck: No lymphadenopathy Thyroid: Thyroid normal Chest Chest palpation & inspection: normal inspection of the chest Resp Effort & Inspection: normal respiratory effort and no audible wheezes Auscultation: clear to auscultation bilaterally, no crackles, no wheezes and lung sounds not diminished Cardio Rate: regular rate Rhythm: regular rhythm Peripheral pulses: radial pulses present and dorsalis pedis present GI Palpation (GI): no masses Auscultation: normal bowel sounds and normoactive bowel sounds Rectal Exam - Female: deferred Skin General skin exam: no rashes or lesions noted Rashes: no rashes Neuro General: No confusion Cranial nerves: Yes Equal, round and reactive pupils present and Yes Normal hearing present Cognition (Neuro): normal cognition Gait exam (Neuro): Normal gait present Motor exam (neuro): 5/5 motor strength present throughout Deep tendon reflexes (DTR's): Right brachioradialis reflex intensity grade: 2+, Left brachioradialis reflex intensity grade: 2+, Right patellar reflex intensity grade: 2+ and Left patellar reflex intensity grade: 2+ Extrem General: No edema Assessment and Plan Assessment & Plan (1) Annual physical exam: Code(s): Z00.00 - Encounter for general adult medical examination without abnormal findings Plan: Patient is advised to eat healthy, keep well hydrated, keep active and have adequate sleep. (2) Multiple sclerosis: Comment: January 2018 vision problem MRI July 2020 Code(s): G35 - Multiple sclerosis Plan: Continue to follow-up with Neurology (3) Positive MAGALY (antinuclear antibody): Code(s): R76.8 - Other specified abnormal immunological findings in serum Plan: Reviewed the notes from Rheumatology patient has no signs of inflammatory arthritis and will continue to monitor. (4) Obesity (BMI 30-39.9): Code(s): E66.9 - Obesity, unspecified Plan: Diet and exercise (5) Overactive bladder: Code(s): N32.81 - Overactive bladder Orders: Orders UA CC w/rflx Micro + Cult Today G35 - Multiple sclerosis, R30.0 - Dysuria Comprehensive Met. Panel Today G35 - Multiple sclerosis Vitamin B12 and Folate Today G35 - Multiple sclerosis Erythrocyte Sedimentation Rate Today G35 - Multiple sclerosis C Reactive Protein Today G35 - Multiple sclerosis Complete Blood Count Auto Diff Today G35 - Multiple sclerosis Free T4 (Free Thyroxine) Today G35 - Multiple sclerosis Thyroid Stimulating Hormone Today G35 - Multiple sclerosis Lipid Panel Today E78.00 - Pure hypercholesterolemia, unspecified, G35 - Multiple sclerosis Vitamin D 25-OH Total Today G35 - Multiple sclerosis Coding Level of Care Code Est Pt Prev Care 40-64y(02133) Diagnoses Annual physical exam Z00.00 Multiple sclerosis G35 Positive MAGALY (antinuclear antibody) R76.8 Obesity (BMI 30-39.9) E66.9 Overactive bladder N32.81
== END 2024-01-02 13:04 | disposition home or self-care (01) ==
PROVIDERS: PCP Internal Medicine; Visit Provider Internal Medicine
DX: Z00.00 Encounter for general adult medical examination without abnormal findings (principal); G35 Multiple sclerosis; R76.8 Other specified abnormal immunological findings in serum; E66.9 Obesity, unspecified; Z68.36 Body mass index [BMI] 36.0-36.9, adult; N32.81 Overactive bladder
CPT/HCPCS: 99396

== ENCOUNTER 2024-01-28 08:38 | Outpatient (REF) | payer BC, SELFPAY ==
[2024-01-28 08:53] LABS: MANUAL DIFF FLAG NO
[2024-01-28 09:11] LABS: Appearance Urine Cloudy; Color Urine Yellow; Glucose Urine UA Negative (Negative); Leukocyte Esterase Urine Negative (Negative); Nitrite Urine Negative (Negative); Specific Gravity - Urine 1.015 (1.005-1.025); Urine Blood Negative (Negative); Urine Ketones Trace mg/dL (Negative); Urine Protein Negative (Neg-Trace)
[2024-01-28 09:22] LABS: Basophils Absolute Auto 0.1 X10*3/uL (0.0-0.2); Basophils Percent Auto 0.6 % (0-2); Eosinophils Absolute Auto 0.2 X10*3/uL (0.0-0.4); Eosinophils Percent Auto 1.9 % (0-4); Hematocrit 42.1 % (37.0-47.0); Imm Gran Abs Auto 0.08 X10*3/uL (0.00-0.03); Lymphocytes Percent Auto 36.4 % (20-40); Mean Corpuscular HGB Conc 33.3 g/dl (31.0-35.0); Mean Corpuscular Volume 87.2 fL (80.0-98.0); Mean Platelet Volume 9.6 fL (9.4-12.3); Monocytes Absolute Auto 0.7 X10*3/uL (0.1-1.2); Monocytes Percent Auto 8.8 % (2-11); NRBC Pct Auto 0.9 /100WBC (0.0-0.2); Neutrophils Absolute Auto 4.2 x10*3/uL (2.0-8.3); Neutrophils Percent Auto 51.3 % (45-73); Platelet Count 284 X10*3/uL (160-400); Red Blood Count 4.83 X10*6/uL (4.20-5.50); Red Cell Distribution Width 13.6 % (11.0-16.0); White Blood Count 8.2 X10*3/uL (4.8-10.8)
[2024-01-28 09:57] LABS: Alanine Aminotransferase 22 U/L (0-31); Albumin Level 4.3 g/dL (3.5-5.0); Alkaline Phosphatase 55 U/L (39-117); Anion Gap 12 (12-20); Aspartate Amino Transferase 18 U/L (5-31); Bilirubin Total 0.5 mg/dL (0.0-1.0); Blood Urea Nitrogen 12 mg/dL (9-16); C Reactive Protein 0.61 mg/dL (< or = 0.50); Calcium 9.1 mg/dL (8.4-10.2); Carbon Dioxide 24 mmol/L (22-29); Chloride 107 mmol/L (96-108); Cholesterol 178 mg/dL (<200); Estimated Glomerular Filt Rate > 60; Glucose Random 97 mg/dL (60-115); HDL Cholesterol 55 mg/dL (>40); LDL Cholesterol Calculated 104 mg/dL (<100); Potassium 4.1 mmol/L (3.3-5.1); Sodium 139 mmol/L (135-145); Total Protein 7.1 g/dL (6.5-8.0); Triglycerides 97 mg/dL (<150)
[2024-01-28 10:15] LABS: Free T4 (Free Thyroxine) 1.02 ng/dL (0.71-1.85); Thyroid Stimulating Hormone 2.14 uIU/mL (0.32-4.0); Vitamin D 25-OH Total 31.3 ng/mL (>30)
[2024-01-28 10:27] LABS: Erythrocyte Sedimentation Rate 6 MM/HR (0-20)
[2024-01-28 10:50] LABS: Folate 13.5 ng/mL (> or = 4.0); Vitamin B12 572 pg/mL (200-900)
== END 2024-01-28 08:39 | disposition home or self-care (01) ==
LOC: HO.LAB 08:38
PROVIDERS: PCP Internal Medicine; Visit Provider Internal Medicine
DX: E78.00 Pure hypercholesterolemia, unspecified (principal); G35 Multiple sclerosis; R30.0 Dysuria
CPT/HCPCS: 36415; 80053; 80061; 81003; 82306; 82607; 82746; 84439; 84443; 85025; 85652; 86140

== ENCOUNTER 2024-11-09 15:15 | Outpatient (REF) | payer BC, SELFPAY ==
--- OUTSIDE RECORDS SUMMARY | 2024-02-17 13:01 | XMS_ITS | Encounter Summary ---
Author Organization [facility] Address [address] [place] [address] Care Team Providers Care Machine Heel Sprayer Name Role Phone Norberto Castillo MD Primary Care Provider [phone] Encounter Details Date Type Department Care Team (Late st Contact Info) Description 02/17/2024 1:01 PM EDT Hospital Encounter TH HISTORIC ENCOUNTERS EASTERN CONVERSION ONLY Kalina Gomez PA [address] [facility] [address] [place] [address] Social History Tobacco Use Types Packs/Day Years [...] AUGUSTO Feliz - 02/17/2024 1:00 PM EDT [facility] Cc: MS HPI: [...] into the vein., Disp: , Rfl: ??? [place]-3 Fatty Acids (Fish Oil) 1000 MG CAPS, [...] been having difficulty with IV access at [facility] and we will see if we can appeal for patientto come to our center for infusions. A. Disease modifying therapy and diagnostic plan: -Continue Tysabri per [facility] protocol (getting her infusion in [facility]) -She is due for annual MRI [...] 30 minutes. The majority of the actual best-kr-omox visit was spent counseling the patient with respect to the current neurological picture. Kalina Gomez PA-C Cc: Dr. Castillo documented in this encounter Plan of Treatment Upcoming Encounters Date Type Department Care Team (Late st Contact Info) Description 12/26/2024 8:30 AM EDT Office Visit [facility] [address] [facility] [address] [place] [phone] Kalina Gomez PA [address] [facility] [address] [place] [address] 10/15/2025 8:30 AM EDT Office Visit [facility] [address] [place] [phone] Kalina Gomez PA [address] [facility] [address] [place] [address] documented as of this encounter Visit Diagnoses Not on filedocumented in this encounter Care Teams Machine Heel Sprayer Relationship Specialty Start Date End Date Norberto Castillo MD [address] [place] [address] [address] [facility] [place] [address] PCP - General Internal Medicine 01/01/22 documented as of this encounter
--- OUTSIDE RECORDS SUMMARY | 2024-11-09 15:17 | XMS_ITS | Patient Health Record ---
Author Organization [facility] Address [address] [place] [address] Care Team Providers Care Maintenance Director Name Role Phone Norberto Castillo MD Primary Care Provider Carlitos Boyer [phone] Allergies No Known Allergies Reason For Referral No Information Medications Medication SIG (Take, Route, Fr equency, Duration) Notes Start Date End Date Status Fish Oil Active Vienva 0.1-20 MG-MCG Oral for 28 Active Tysabri 300 MG/15ML as directed Intravenous 2022 Active Immunizations Vaccine Route Administration Date Status Comme nts Influenza Unknown 01/23/2022 Administered Social History Tobacco Use: Social History Observation Description Date Details (start date - stop date) Never Smoker NA - NA Tobacco Use/Smoking Question Answer Notes Patient is a nonsmoker Alcohol Screen Question Answer Notes Did you have a drink contain ing alcohol in the past year? Yes How often did you have a dri nk containing alcohol in the past year? 4 or more times a week (4 points) How many drinks did you have on a typical day when you were drinking in the past year? 1 or 2 drinks (0 point) How often did you have 6 or more drinks on one occasion in the past year? Never (0 point) Points 4 Interpretation Positive Section Notes: Nonsmoker; no sig alcohol Problems Problem Type SNOMED Code ICD Code Onset Dates Problem Status W/U Status Risk Notes Problem 033316166 Screen for colon cancer (Z12.11) Active confirmed Problem 097417098310852 Preprocedural examination (Z01.818) Active confirmed Problem Diverticulosis of colon (529757363) Diverticulosis of colon (K57.30) Active confirmed Plan Of Treatment Future Test Test Name Order Date COLONOSCOPY 05/12/2022 Insurance Providers Payer Name Payer Address Payer Phone Subscriber Number Group Number Insured Name Patient Relationship to Insured Coverage Start Date Coverage End Date [facility] [address] [place] [address] [id number] RELL MAHER Self - patient is the insured Medical (General) History Medical History History ICD Code Kidney stones Multiple sclerosis-for 4 years-sees Dr. Samuels at [facility] Denies CO,DM,CVA,Lung disease,renal dise ase Surgical History Surgery Date(Month/Year)
--- OUTSIDE RECORDS SUMMARY | 2024-11-09 15:17 | XMS_ITS | Clinical Summary ---
Author Organization [facility] Address [address] [place] [address] Phone Care Team Providers Care Commercial Collector Name Role Phone Norberto Castillo MD Primary Care Provider [phone] Social History Tobacco Use Types Packs/Day Years Used Date Smoking Tobacco: Never Assessed Comments Unknown Sex and Gender Information Value Date Recorded Sex Assigned at Not on file Legal Sex Female 1:12 PM EST Gender Identity Not on file Sexual Orientation Not on file Plan of Treatment Not on file Medical Devices Not on file [place] [address] [place] [id number] [facility] [place] [address] [place] [address] [employer] OUT OF STATE PPO MICHEAL ESCUDERO BL[employer] OUT OF STATE PPO MICHEAL ESCUDERO BLUE CROSS OUT OF STATE [place]PO [place] [place] [id number] [employer] OUT OF STATE PPO BL[employer] OUT OF STATE PPO Care Teams Commercial Collector Relationship Specialty Start Date End Date Norberto Castillo MD [address] [place] [address] [place] [address] PCP - General Internal Medicine 06/25/24 Additional Source Comments The information contained in this document represents components of the legal health record. It is not the complete legal health record.[facility]
--- OUTSIDE RECORDS SUMMARY | 2024-11-09 15:17 | XMS_ITS | Clinical Summary ---
Author Organization [facility] Address [address] [place] [address] Care Team Providers Care Machine Shop Apprentice Name Role Phone Norberto Castillo MD Primary Care Provider [phone] Allergies Active Allergy Reactions Criticality Noted Date Comments [place] Other (See Comments) 07/05/2022 Kiwi 07/05/2022 AL[place]DS Oxycodone-Acetaminophen 02/18/2022 Medications Medication Sig Dispensed Refills Start Date End Date Status Vienva 0.1-20 MG-MCG per tablet Take 1 tablet by mouth daily. 0 05/06/2022 Active Natalizumab (TYSABRI IV) Inject into the vein. 0 Active [place]-3 Fatty Acids (Fish Oil) 1000 MG CAPS 0 Active MULTIPLE VITAMINS-CALCIUM PO Take by mouth. 0 A ctive SUMAtriptan (IMITREX) 100 MG tablet Take 1 tablet (100 mg total) by mouth every 2 (two) hours as needed for migraine. Max 2 per 24 hours. 10 tablet 5 02/21/2024 Active Active Problems Problem Noted Date Diagnosed Date Multiple sclerosis 03/16/2022 Family History Medical History Relation Name Comments Multiple sclerosis Neg Hx Social History Tobacco Use Types Packs/Day Years Used Date Smoking Tobacco: Never Smokeless Tobacco: Never Tobacco Cessation:Counseling Given: Not Answered Alcohol Use Standard Drinks/Week Comments Never 0 (1 standard drink = 0.6 oz pur e alcohol) Sex and Gender Information Value Date Recorded Sex Assigned at Female 01/01/2022 11:06 AM EDT Gender Identity Not on file Sexual Orientation Not on file Job Start Date Occupation Industry Not on file Not on file Not on file Last Filed Vital Signs Vital Sign Reading Time Taken Comments Blood Pressure 125/86 02/17/2024 1:19 PM EDT Pulse 84 02/17/2024 1:19 PM EDT Temperature 36.1 C (96.9 F) 02/17/2024 1:19 PM EDT Respiratory Rate 16 02/17/2023 1:44 PM EDT Oxygen Saturation 96% 10/19/2023 11:38 AM EDT Inhaled Oxygen Concentration - - Weight 84 kg (185 lb 3.2 oz) 10/19/2023 11:38 AM EDT Height 152.4 cm (5') 10/19/2023 11:38 AM EDT Body Mass Index 36.17 10/19/2023 11:38 AM EDT Plan of Treatment Health Maintenance Due Date Last Done Comments Hepatitis B Vaccines (1 of 3 - 3-dose series) 1975 Hepatitis C Screening 1975 COVID-19 Vaccine (#1) 1975 Depression Screening 1987 BMI Counseling 1993 Preventative Health Evaluation 1993 DTap / Tdap / Td (1 - Tdap) 1994 Cervical Cancer Screening (P ap Smear) 1996 Colon Cancer Screening (Colonoscopy) 2020 Influenza Vaccine (#1) 2024 Pneumococcal Vaccine Aged Out No long er eligible based on patient's age to complete this topic RSV Ped < 20 months Aged Out No longe r eligible based on patient's age to complete this topic Care Teams Machine Shop Apprentice Relationship Specialty Start Date End Date PoNorberto MD [address] [place] [address] Dr [address]ige [address] [facility] [place] [address] PCP - General Internal Medicine 01/01/22
[2024-11-09 16:22] LABS: Appearance Urine Clear; Glucose Urine UA Negative (Negative); PH 8.0 (5.0-9.0); Specific Gravity - Urine 1.010 (1.005-1.025)
== END 2024-11-09 15:16 | disposition home or self-care (01) ==
LOC: HO.LAB 15:15
PROVIDERS: PCP Internal Medicine; Visit Provider Internal Medicine
DX: R30.0 Dysuria (principal)
CPT/HCPCS: 81003

== ENCOUNTER 2025-01-02 10:57 | Outpatient (AMB) | payer BC, SELFPAY ==
--- OUTSIDE RECORDS SUMMARY | 2024-02-17 13:01 | XMS_ITS | Encounter Summary ---
Author Organization [facility] Address [address] [place] [address] Care Team Providers Care Search Specialist Name Role Phone Norberto Castillo MD Primary Care Provider [phone] Encounter Details Date Type Department Care Team (Late st Contact Info) Description 02/17/2024 1:01 PM EDT Hospital Encounter TH HISTORIC ENCOUNTERS EASTERN CONVERSION ONLY Kalina Gomez PA [address] [place] [address] Social History Tobacco Use Types Packs/Day Years [...] AUGUSTO Feliz - 02/17/2024 1:00 PM EDT [facility] FOR MULTIPLE SCLEROSIS Cc: MS HPI: Patient [...] into the vein., Disp: , Rfl: ??? [place]-3 Fatty Acids (Fish Oil) 1000 MG CAPS, [...] been having difficulty with IV access at [facility] and we will see if we can appeal for patientto come to our center for infusions. A. Disease modifying therapy and diagnostic plan: -Continue Tysabri per [facility] protocol (getting her infusion in [facility]) -She is due for annual MRI of [...] 30 minutes. The majority of the actual wnec-gw-fdgb visit was spent counseling the patient with respect to the current neurological picture. Kalina Gomez PA-C Cc: Dr. Castillo documented in this encounter Plan of Treatment Upcoming Encounters Date Type Department Care Team (Late st Contact Info) Description 05/01/2025 8:30 AM EST Office Visit [facility] 175 [facility] [address] [place] [phone] Kalina Gomez PA [address] [facility] [address] [place] [address] 10/15/2025 8:30 AM EDT Office Visit [facility] [address] [facility] [address] [place] [phone] Kalina Gomez PA [address] [facility] [address] [place] [address] documented as of this encounter Visit Diagnoses Not on filedocumented in this encounter Care Teams Search Specialist Relationship Specialty Start Date End Date Norberto Castillo MD [address] [place] [address] [address] [facility] [place] [address] PCP - General Internal Medicine 01/01/22 documented as of this encounter
[2025-01-02 11:01] VITALS: BP 110/82; PULSE 81; TEMP 36.3; O2SAT 97; BMI 36.0
--- NOTE | 2025-01-02 11:01 | A.OFFPC_ITS ---
Vital Signs 01/02/25 11:01 Height 5 ft Weight 184 lb 6 oz BMI 36.0 BP 110/82 Blood Pressure Location Lt brachial Position Sitting Pulse 81 Pulse Source Pulse Oximeter Temp 97.3 F Temp Source Temporal Artery Scan Pulse Oximetry (%) 97 Oxygen Delivery Method Room Air Intake Visit Reasons: Annual Exam Allergies oxycodone Adverse Reaction (Intermediate, Verified 01/02/25 11:04) dizzy Medication List - Last Reconciled 01/02/25 by Norberto Castillo MD calcium carbonate 600 mg PO DAILY cholecalciferol (vitamin D3) 25 mcg PO DAILY cyanocobalamin (vitamin B-12) 1,000 mcg PO DAILY epinephrine 0.3 mg (0.3 mL) IM Q10M PRN escitalopram oxalate mg PO flaxseed oil 1,000 mg PO DAILY levonorgestrel-ethinyl estrad 0.1-20 mg-mcg (Vienva) 1 tab PO DAILY multivitamin 1 tab PO DAILY natalizumab (Tysabri) 300 mg IV Q4W omega-3 acid ethyl esters 1 cap PO DAILY scopolamine base (Transderm-Scop) 1 patch transdermal Q3D PRN sumatriptan succinate 100 mg PO ONCE PRN trospium ER 60 mg PO QAM Tobacco use date assessed: 01/02/25 Dental Screening Dental Screen Date: 01/02/25 Did you have a dental visit in the last 12 months?: Yes Did you have a dental problem in the last 6 months where you did not have access to dental care?: No Was dental information given to patient?: Patient has dentist [facility] Medical History Colon cancer screening School health examination Annual physical exam Kidney stone Allergic reaction Leukopenia Optic neuritis Multiple sclerosis Surgical History Varicose veins of both lower extremities Uterine polyp History of section H/O arthroscopy of left knee Family History Father Myocardial infarction Mother No problems noted. Paternal Aunt Breast cancer Heart disease Maternal Grandmother No problems noted. Paternal Uncle Heart disease Social History (Updated 01/02/25 @ 11:38 by Norberto Castillo MD) Housing: House Alcohol intake: current Alcohol intake frequency: a few times a week Comment: 5x a week 1 glass. stopped 07/2024 Patient Tobacco Use Status: Never used Tobacco Tobacco use type: Cigarette Years Smoked: occ CBD e-Cigarette/Vaping Use: Never Used Second Hand Smoke Exposure: No service: No Current occupational status: unemployed Cognitive needs: No Hearing needs: No Vision needs: Yes Questionnaire PHQ-9 Over the last 2 weeks, how often have you been bothered by any of the following problems? 1. Little interest or pleasure in doing things: not at all 2. Feeling down, depressed, or hopeless: not at all 3. Trouble falling or staying asleep, or sleeping too much: several days 4. Feeling tired or having little energy: several days 5. Poor appetite or overeating: not at all 6. Feeling bad about yourself - or that you are a failure or have let yourself or your family down: not at all 7. Trouble concentrating on things, such as reading the newspaper or watching television: several days 8. Moving or speaking so slowly that other people could have noticed. Or the opposite - being so fidgety or restless that you have been moving around a lot more than usual: not at all 9. Thoughts that you would be better off or of hurting yourself in some way: not at all Total score: 3 Depression Screening Interpretation: Positive Depression Screening Done: Yes 27066 - PHQ-9 Billing: Yes Source: Developed by Drs. Carlitos Posey, Pretty Sotomayor, Remy Lund and colleagues, with an educational lea from [employer]. Thrive Questionnaire Date Thrive assessed: 12/31/24 I am a: Patient What is your living situation today?: I have a steady place to live Within the past 12 months, did the food you bought not last and you didn't have the money to get more?: Never true Within the past 12 months, did you worry whether your food would run out before you got money to buy more?: Never true Do you have trouble paying for medicines?: No Do you have trouble getting transportation to medical appointments?: No Do you have trouble paying your heating and electricity bill?: No Do you have trouble taking care of your child, family member or friend?: No Do you have trouble with day-to-day activities such as bathing, preparing meals, shopping, managing finances, etc.?: No Are you currently unemployed and looking for a job?: No Are you interested in more education?: No Please select the resources that you would like help with: None Currently or been in a relationship where the following occur: No concerns reported THRIVE Score: 0 AUDIT C Alcohol Use Questionnaire (AUDIT-C) 1. How often do you have a drink containing alcohol?: Never 3. How often do you have six or more drinks on one occasion?: Never Total Score: 0 NORMA-7 AMB Questionnaire NORMA-7 Date NORMA - 7 assessed: 01/02/25 Feeling nervous, anxious, or on edge: 0 = Not at all Not being able to stop or control worryin = Not at all Worrying too much about different things: 0 = Not at all Trouble relaxin = Not at all Being so restless that it is hard to sit still: 0 = Not at all Becoming easily annoyed or irritable: 0 = Not at all Feeling afraid as if something awful might happen: 0 = Not at all Total NORMA-7 score (0-4 normal; 5-9 mild; 10-14 moderate; 15-21 severe): 0 Source: Developed by Drs. Carlitos Posey, Pretty Sotomayor, Remy Lund and colleagues, with an educational lea from [employer]. NORMA-7 Assessment Billing NORMA-7 Assessment Tool: NORMA-7 Assessment 31156 Review of Systems Const Denies poor appetite and Denies weakness Eyes Denies no additional complaints ENT Reports Normal hearing present, Denies dizziness, Denies nasal congestion, Denies tinnitus and Denies sore throat Card Denies chest pain, Denies syncope, Denies rapid heart rate and Denies dyspnea Resp Denies cough and Denies dyspnea GI Denies change in stool character, Reports constipation, Denies diarrhea, Denies nausea and Denies vomiting Denies urinary frequency, Denies difficulty voiding and Denies dysuria Neuro Reports Normal hearing present, Denies confusion, Denies dizziness, Denies syncope and Denies weakness Psych Denies confusion Physical exam (Primary Care) Vital Signs: Last Vital Signs Temp 97.3 F 01/02/25 11:01 Pulse 81 01/02/25 11:01 BP 110/82 01/02/25 11:01 Pulse Ox 97 09/10/25 11:01 Oxygen Delivery Method Room Air 01/02/25 11:01 BMI result Body Mass Index 36.0 Tobacco/Smoking Status: Tobacco use Status Tobacco use date assessed 01/02/25 01/02/25 11:07 Patient Tobacco Use Status Never used Tobacco 01/02/25 11:07 Tobacco use type Cigarette 01/02/25 11:07 e-Cigarette/Vaping Use Never Used 01/02/25 11:07 PHQ-9: PHQ-9 Score PHQ-9: Total score 3 01/02/25 11:07 Depression Screening Interpretation: Positive Thrive Assessment: Date of Thrive Assessment Date Thrive assessed 12/31/24 01/02/25 11:07 Currently or been in a relationship where the following occur: No concerns reported Const General: alert and awake; No confusion Orientation/consciousness: No confusion HENMT Head: Yes normocephalic Ears: external ears normal and TM's normal bilaterally Face and sinus: Yes normal facial exam Mouth: moist mucous membranes Throat: Yes tonsils normal Eyes Conjunctivae: conjunctivae normal Pupils: Equal, round and reactive pupils present and Pupil accommodation reflex normal Direct Ophthalmoscopy: normal light reflex Neck Neck: No lymphadenopathy Thyroid: Thyroid normal Chest Chest palpation & inspection: normal inspection of the chest Resp Effort & Inspection: normal respiratory effort and no audible wheezes Auscultation: clear to auscultation bilaterally, no crackles, no wheezes and lung sounds not diminished Cardio Rate: regular rate Rhythm: regular rhythm Peripheral pulses: radial pulses present and dorsalis pedis present GI Palpation (GI): no masses Auscultation: normal bowel sounds and normoactive bowel sounds Rectal Exam - Female: deferred Skin General skin exam: no rashes or lesions noted Rashes: no rashes Neuro General: deep tendon reflexes 2+ bilaterally and No confusion Cranial nerves: Yes Equal, round and reactive pupils present, Yes Midline tongue present, Yes Normal hearing present and Yes Ability to bilaterally elevate shoulders present Cognition (Neuro): normal cognition Gait exam (Neuro): Normal gait present Motor exam (neuro): 5/5 motor strength present throughout Deep tendon reflexes (DTR's): Right brachioradialis reflex intensity grade: 2+, Left brachioradialis reflex intensity grade: 2+, Right patellar reflex intensity grade: 2+ and Left patellar reflex intensity grade: 2+ Extrem General: No edema Coding Level of Care Code Est Pt Prev Care 40-64y(28769) Diagnoses Annual physical exam Z00.00 Multiple sclerosis G35 Obesity (BMI 30-39.9) E66.9 Overactive bladder N32.81 Depression F32.A Left hand pain M79.642 Additional Codes NORMA-7 Assessment Billing - NORMA-7 Assessment Tool: NORMA-7 Assessment 95529 ([id number]) PHQ-9 - 23191 - PHQ-9 Billing: Yes ([id number]) Assessment & Plan Assessment & Plan (1) Annual physical exam: Code(s): Z00.00 - Encounter for general adult medical examination without abnormal findings Category: Medical Plan: Patient is advised to eat healthy, keep well hydrated, keep active and have adequate sleep. (2) Multiple sclerosis: Comment: January 2018 vision problem MRI July 2020 Code(s): G35 - Multiple sclerosis Category: Medical Plan: Continue to follow-up with [facility] on Tysabri (3) Obesity (BMI 30-39.9): Code(s): E66.9 - Obesity, unspecified Category: Medical Plan: Diet and exercise (4) Overactive bladder: Code(s): N32.81 - Overactive bladder Category: Medical Plan: Patient has been placed on trospium. Timed voiding meaning every 1-2 hours even if you do not feel like urinating empty the bladder, avoid drinks with high sweet content like juices or caffeine that makes her urinate, 2 hours before you sleep hold liquids so that in the morning you do not get the bladder to be too full. (5) Depression: Code(s): F32.A - Depression, unspecified Category: Medical Plan: Continue with present medication (6) Left hand pain: Code(s): M79.642 - Pain in left hand Category: Medical Plan History of Present Illness The patient is a 49-year-old female presenting for a physical examination and management of chronic conditions. She has a history of multiple sclerosis diagnosed in 2018 and is currently under the care of the [facility], where she receives treatment with Tysabri. The patient undergoes annual MRI scans of the cervical spine and brain without contrast and is monitored for JCV antibodies. The patient also reports an overactive bladder for which she is taking trospium, and she has been seeing a urogynecologist for management. She has started pelvic floor exercises through a physical therapy brian provided by her 's insurance. The patient has a family history of heart disease, with her father having had a heart attack and her aunt and uncle having heart disease. There is also a family history of breast cancer in her aunt. The patient denies any new diagnoses or surgeries since her last visit and reports no issues with her current medications, which include Lexapro, calcium, vitamin D, B12, flaxseed, control pills, multivitamins, fish oil, and sumatriptan for migraines. She has stopped consuming alcohol since starting Lexapro in July and does not smoke cigarettes. Health Maintenance - Mammogram due - Colonoscopy up to date as of August 2022 - Annual MRI of cervical spine and brain without contrast - Monitoring for JCV antibodies - Pelvic floor exercises initiated Social History - Alcohol: Stopped consumption since July after starting Lexapro - Smoking: Denies cigarette use - Exercise: Engaged in pelvic floor exercises through a physical therapy brian Review of Systems - Cardiovascular: Denies chest pain, orthopnea, or syncope - Respiratory: Denies dyspnea, cough, or wheezing - Gastrointestinal: Reports occasional indigestion, denies nausea, vomiting, or abdominal pain - Neurological: Denies dizziness, headaches, or balance issues - Genitourinary: Denies nocturia, reports improvement in bladder symptoms with medication Physical Exam General: Cooperative, healthy appearing, comfortable, no acute distress and well developed Orientation: Patient oriented x3 Limitations: No limitations Head: Normal to inspection Ears: Hearing grossly normal bilaterally Nose: Normal external nose present Face and sinus: Normal facial exam Eyes: Appearance normal, both eyes and all related structures Neck: Normal visual inspection and Yes full ROM Respiratory: Normal respiratory effort and able to speak in complete sentences. Clear to auscultation bilaterally Cardiovascular: Regular rate and rhythm. Normal S1 and S2 GI: Normal to inspection. Soft to palpation and nontender Skin: No rashes or lesions noted Neuro: Patient oriented x3 Extremities: Normal to inspection Results - Labs: Normal blood count, electrolytes, renal function, blood sugar, liver function, cholesterol, B12, vitamin D, folic acid, and thyroid levels as of January 2024 Plan Patient was informed and verbally consented to the use of an ambient scribe for clinic note documentation during this visit. 1. Obesity The patient is advised to continue with diet and exercise modifications to manage obesity. 2. Multiple Sclerosis The patient is to continue follow-up with the [facility] and treatment with Tysabri. Annual MRI scans and monitoring of JCV antibodies are recommended to assess disease progression and treatment safety. 3. Overactive Bladder The patient is to continue taking trospium for bladder symptoms and engage in pelvic floor exercises. 4. Preventative Care The patient is due for a mammogram and should continue regular screenings as per guidelines. Colonoscopy is up to date as of August 2022. Discussion Notes During the visit, we discussed the importance of continuing with current medications and regular follow-ups for multiple sclerosis management. The patient was advised to maintain a healthy lifestyle, including diet and exercise, to manage obesity and improve overall health. We also reviewed the need for regular screenings, including a mammogram, and the patient was informed about the status of her colonoscopy. Patient Instructions - Continue current medications as prescribed. - Follow up with the [facility] for multiple sclerosis management. - Engage in regular physical activity and maintain a balanced diet. - Schedule a mammogram as it is due. - Continue pelvic floor exercises for bladder management. Orders: Orders Thyroid Stimulating Hormone Today G35 - Multiple sclerosis Lipid Panel Today E78.00 - Pure hypercholesterolemia, unspecified, G35 - Multiple sclerosis Vitamin B12 and Folate Today G35 - Multiple sclerosis Rubella IgG Antibody Today G35 - Multiple sclerosis, Z02.0 - Encounter for examination for admission to [facility] Varicella IgG Antibody Today G35 - Multiple sclerosis, Z02.0 - Encounter for examination for admission to [facility] XR hand LT 2V Today M79.642 - Pain in left hand Complete Blood Count Auto Diff Today G35 - Multiple sclerosis Comprehensive Met. Panel Today G35 - Multiple sclerosis Free T4 (Free Thyroxine) Today G35 - Multiple sclerosis Vitamin D 25-OH Total Today G35 - Multiple sclerosis Rubeola IgG (Measles) Today G35 - Multiple sclerosis, Z02.0 - Encounter for examination for admission to [facility] Mumps Virus IgG Antibody Today G35 - Multiple sclerosis, Z02.0 - Encounter for examination for admission to [facility] Referrals Orthopedics Referral M79.642 - Pain in left hand
--- OUTSIDE RECORDS SUMMARY | 2025-01-02 13:59 | XMS_ITS | Clinical Summary ---
Author Organization [facility] Address [address] [place] [address] Phone Care Team Providers Care Power Line Installer Name Role Phone Norberto Castillo MD Primary Care Provider [phone] Social History Tobacco Use Types Packs/Day Years Used Date Smoking Tobacco: Never Assessed Comments Unknown Sex and Gender Information Value Date Recorded Sex Assigned at Not on file Legal Sex Female 1:12 PM EST Gender Identity Not on file Sexual Orientation Not on file Plan of Treatment Upcoming Encounters Date Type Department Care Team (Late st Contact Info) Description 01/22/2025 1:30 PM EDT Office Visit [facility] [address] [place] [address] [address] Jessica Hammer, PT [address] [place] [address] 01/29/2025 1:30 PM EDT Office Visit [facility] [address] [place] [address] [address] Jessica Hammer, PT [address] [place] [address] 02/05/2025 1:30 PM EDT Office Visit [facility] [address] [place] [address] [facility], [address] [address] Jessica Hammer, PT [address] [place] [phone] [email or web address] 02/12/2025 1:30 PM EDT Office Visit [address] [address] [facility], [address] [address] Jessica Hammer, PT [address] [place] [phone] [email or web address] 02/19/2025 1:30 PM EDT Office Visit [address] [address] [facility], [address] [address] Jessica Hammer, PT [address] [place] [phone] [email or web address] 02/26/2025 1:30 PM EST Office Visit [address] [address] [facility], [address] [address] Jessica Hammer, PT [address] [place] [phone] [email or web address] 03/05/2025 1:30 PM EST Office Visit [facility] [address] [place] [address] Fabienne Olmstead, DO [address] [place] [address] Jessica Hammer, PT [address] [place] [address] 03/12/2025 1:30 PM EST Office Visit [facility] [address] [place] [address] Fabienne Olmstead, DO [address] [place] [address] Jessica Hammer, PT [address] [place] [address] [email or web address] Health Maintenance Due Date Last Done Comments Adult Td,Tdap Booster 1975 LIPID PANEL 1975 DEPRESSION SCREENING 1987 HEPATITIS C SCREENING 1993 HIV ONE-TIME SCREENING (18-6 5 YEARS) 1993 PAP SMEAR 1996 MAMMOGRAM 2015 INFLUENZA VACCINE (#1) 2024 COVID-19 VACCINE (2023-2 5 season) 2024 COLORECTAL CANCER SCREENING Completed HEPATITIS A VACCINES Aged Out No long er eligible based on patient's age to complete this topic HIB VACCINES Aged Out No longer eligi ble based on patient's age to complete this topic MENINGOCOCCAL VACCINES (ACWY) Aged Out No longer eligible based on patient's age to complete this topic MENINGOCOCCAL VACCINES (B) Aged Out N o longer eligible based on patient's age to complete this topic PNEUMOCOCCAL VACCINES (0-49 years) Aged Out No longer eligible based on patient's age to complete this topic Medical Devices Not on file Insurance [facility] OUT OF STATE PPO MICHEAL ESCUDERO [employer] OUT [place] STATE [place] [address] [place] [id number] [employer] OUT OF STATE PPO MICHEAL ESCUDERO [facility] OUT [facility] PPO MICHEAL ESCUDERO [facility] OUT OF STATE PPO Care Teams Power Line Installer Relationship Specialty Start Date End Date Norberto Castillo MD [address] [place] [address] PCP - General Internal Medicine 06/25/24 Additional Source Comments The information contained in this document represents components of the legal health record. It is not the complete legal health record.[facility]
--- OUTSIDE RECORDS SUMMARY | 2025-01-02 13:59 | XMS_ITS | Clinical Summary ---
Author Organization [facility] Address [address] [place] [address] Care Team Providers Care Heat Treat Supervisor Name Role Phone Po, Norberto SUAREZ Primary Care Provider [phone] Allergies Active Allergy Reactions Criticality Noted Date Comments Acetaminophen Unknown 03/16/2022 Wharton Itching,Other 07/05/2022 Kiwi 07/05/2022 ALMONDS Oxycodone Unknown 03/16/2022 Oxycodone-Acetaminophen 02/18/2022 Medications Vienva 0.1-20 mg-mcg per tablet Take 1 tablet by mouth 1 (one) time each day. Active natalizumab (Tysabri) 300 mg/15 mL injection as directed Intravenous 3 Active scopolamine (TRANSDERM-SCO P) 1 mg over 3 days patch 3 day APPLY 1 PATCH TRANSDERMALLY EVERY 3 DAYS NEEDED FOR MOTION SICKNESS 4 Active SUMAtriptan (IMITREX) 100 mg tablet Take 1 tablet (100 mg total) by mouth 1 (one) time if needed for migraine. 9 tablet 1 5 Active trospium 60 mg capsule,extend ed release 24hr 5 Active escitalopram (Lexapro) 10 mg tablet 1/2 po qd x 1 week, then 1 po qd 30 each 5 5 Active Encounters Date Type Department Care Team Description 12/26/2024 8:30 AM EDT Office Visit [facility] [address] [place] [address] Kalina Gomez PA Multiple sclerosis (CMS/HCC V24, CMS/HCC V28) (Primary Dx) 11/14/2024 Telephone [facility] [place] [address] [facility] [address] [place] [address] Kalina Gomez PA 10/15/2024 11:00 AM EDT Office Visit [facility] [place] 175 [facility] [address] [place] [address] Kalina Gomez PA Multiple sclerosis ([facility] V24, [facility] V28) (Primary Dx) from Last 3 Months Immunizations Name Administration Dates Next Due DTaP (Infanrix) 6wks to less than 7yo 05/24/2012 Influenza Quadravalent, MDCK , 0.5ml, preservative free (Flucelvax) 6mo and older 01/16/2022 Influenza Quadrivalent, 0.5m l, preservative free (Fluarix; FluLaval; Fluzone) ages 6mo and older (Afluria) 3yo and older 02/12/2023,03/13/2020 Influenza Quadrivalent, with preservative (Fluzone; Afluria) 6mo and older 01/22/2019 Influenza trivalent, 0.5mL, preservative free (Fluarix; FluLaval; Fluzone) ages 6mo and older (Afluria) 3 years and older 01/15/2024 Influenza trivalent, with pr eservative (Fluzone; Afluria) 6mo and older 01/23/2022 Pneumococcal polysaccharide 23 valent (Pneumovax 23) 2yo and older 03/13/2020 Tdap Tetanus diptheria acell ular pertussis (Boostrix; Adacel) 7yo and older 09/10/2022,04/28/2020 Medical History Medical History Date Comments MS (multiple sclerosis) ([facility] V24, [facility] V28) DX:MS (multiple sclerosis) ( [facility]) Family History Medical History Relation Name Comments [...] on file Sexual Orientation Not on file Obstetrics History Last Filed Vital Signs Vital Sign Reading Time Taken Comments Blood Pressure 121/87 12/26/2024 8:38 AM EDT Pulse 78 12/26/2024 8:38 AM EDT Temperature 36.1 C (97 F) 12/26/2024 8:38 AM EDT Respiratory Rate - - Oxygen Saturation 98% 12/26/2024 8:38 AM EDT Inhaled Oxygen Concentration - - Weight 84 kg (185 lb 3.2 oz) 10/19/2023 11:38 AM EDT Height 152.4 cm (5') 10/19/2023 11:38 AM EDT Body Mass Index 36.17 10/19/2023 11:38 AM EDT Plan of Treatment Upcoming Encounters Date Type Department Care Team (Late st Contact Info) Description 05/01/2025 8:30 AM EST Office Visit [facility] 175 [facility] [address] [place] [phone] Kalina Gomez PA [address] [address] 10/15/2025 8:30 AM EDT Office Visit [facility] [address] [phone] Kalina Gomez PA [address] [address] Health Maintenance Due Date Last Done Comments Breast Cancer Screening 1975 Hepatitis B Vaccines (1 of 3 - 19+ 3-dose series) 1994 Cervical Cancer Screening: Pap Smear 1996 Colorectal Cancer Screening: Colonoscopy 04/03/2022 HIV Screening 04/03/2022 Hepatitis C Screening 04/03/2022 Social Influencers of Health Screening 04/03/2022 Depression Screening 04/25/2024 Influenza Vaccine (#1) 2024 , 02/12/2023, 01/23/2022, Additional history exists DTaP,Tdap,and Td Vaccines (4 - Td or Tdap) 09/10/2032 09/10/2022, 04/28/2020, 05/24/2012 Pneumococcal Vaccine: Pediatrics (0 to 5 Years) and At-Risk Patients (6 to 49 Years) Aged Out 03/13/2020 No longer eligible based on patient's age to complete this topic COVID-19 Vaccine Completed 01/15/2024, , 01/16/2022, Additional history exists HIB Vaccines Aged Out No longer eligi ble based on patient's age to complete this topic HPV Vaccines Aged Out No longer eligi ble based on patient's age to complete this topic Hepatitis A Vaccines Aged Out No long er eligible based on patient's age to complete this topic IPV Vaccines Aged Out No longer eligi ble based on patient's age to complete this topic MMR Vaccines Aged Out No longer eligi ble based on patient's age to complete this topic Meningococcal ACWY Vaccine Aged Out N o longer eligible based on patient's age to complete this topic Meningococcal B Vaccine Aged Out No l onger eligible based on patient's age to complete this topic RSV Immunization Patients Under 20 months Aged Out No longer eligible based on patient's age to complete this topic Varicella Vaccines Aged Out No longer eligible based on patient's age to complete this topic Insurance [facility] Care Teams Heat Treat Supervisor Relationship Specialty Start Date End Date Norberto Castillo MD [address] [place] [address] [address] [facility] [place] [address] PCP - General Internal Medicine 01/01/22
--- OUTSIDE RECORDS SUMMARY | 2025-01-02 13:59 | XMS_ITS | Patient Health Record ---
Author Organization [facility] Address [address] [place] [address] Care Team Providers Care Undercover Operator Name Role Phone Norberto Castillo MD Primary Care Provider Carlitos Boyer [phone] Allergies No Known Allergies Reason For Referral [...] Problem Status W/U Status Risk Notes Problem [id number] Screen for colon cancer (Z12.11) Active confirmed Problem [id number] Preprocedural examination (Z01.818) Active confirmed Problem Diverticulosis of colon (478482360) Diverticulosis of colon (K57.30) Active confirmed Plan Of Treatment Future Test Test Name Order Date COLONOSCOPY 05/12/2022 Insurance Providers Payer Name Payer Address Payer Phone Subscriber Number Group Number Insured Name Patient Relationship to Insured Coverage Start Date Coverage End Date [facility] [address] [place] [address] [id number] RELL MAHER Self - patient is the insured Medical (General) History Medical History History ICD Code Kidney stones Multiple sclerosis-for 4 years-sees Dr[facility] Samuels at [facility] Denies VT,DM,CVA,Lung disease,renal dise ase Surgical History Surgery Date(Month/Year)
--- OUTSIDE RECORDS SUMMARY | 2025-01-02 13:59 | XMS_ITS | Clinical Summary ---
Author Organization [facility] Address [address] [place] [address] Care Team Providers Care Mobile Paramedical Examiner Name Role Phone Norberto Castillo MD Primary Care Provider [phone] Allergies Active Allergy Reactions Criticality Noted Date Comments Wharton Other (See Comments) 07/05/2022 Kiwi 07/05/2022 ALMONDS Oxycodone-Acetaminophen 02/18/2022 Medications Medication Sig Dispensed Refills Start Date End Date Status Vienva 0.1-20 MG-MCG per tablet Take 1 tablet by mouth daily. 0 05/06/2022 Active Natalizumab (TYSABRI IV) Inject into the vein. 0 Active Mineral-3 Fatty Acids (Fish Oil) 1000 MG CAPS [...] age to complete this topic Care Teams Mobile Paramedical Examiner Relationship Specialty Start Date End Date PoNorberto MD [address] [place] [address] Dr Paige [address] [facility] [place] [address] PCP - General Internal Medicine 01/01/22
== END 2025-01-02 11:57 | disposition home or self-care (01) ==
LOC: HO.HMCH 10:58
PROVIDERS: PCP Internal Medicine; Visit Provider Internal Medicine
DX: Z00.00 Encounter for general adult medical examination without abnormal findings (principal); G35 Multiple sclerosis; Z68.36 Body mass index [BMI] 36.0-36.9, adult; E66.9 Obesity, unspecified; N32.81 Overactive bladder; F32.A Depression, unspecified; M79.642 Pain in left hand

== ENCOUNTER → 2025-01-02 10:57 | Outpatient (BNVA) | payer BC, SELFPAY | PROVIDERS: PCP Internal Medicine; Visit Provider Internal Medicine | DX: Z00.00 Encounter for general adult medical examination without abnormal findings (principal); G35 Multiple sclerosis; E66.9 Obesity, unspecified; N32.81 Overactive bladder; F32.A Depression, unspecified; M79.642 Pain in left hand | CPT/HCPCS: 96127 ==

== ENCOUNTER 2025-02-07 08:36 | Emergency (ER) | payer BC, SELFPAY ==
--- OUTSIDE RECORDS SUMMARY | 2024-02-17 13:01 | XMS_ITS | Encounter Summary ---
Author Organization [facility] Address [address] [place] [address] Care Team Providers Care Kindergarten Tutor Name Role Phone Norberto Castillo MD Primary Care Provider [phone] Encounter Details Date Type Department Care Team (Late st Contact Info) Description 02/17/2024 1:01 PM EDT Hospital Encounter TH HISTORIC ENCOUNTERS EASTERN CONVERSION ONLY Kalina Gomez PA [address] [facility] [address] [place] [address] Social History Tobacco Use Types Packs/Day Years [...] AUGUSTO Feliz - 02/17/2024 1:00 PM EDT [facility] FOR MULTIPLE SCLEROSIS Cc: MS HPI: Patient [...] into the vein., Disp: , Rfl: ??? [place]-3 Fatty Acids (Fish Oil) 1000 MG CAPS, [...] been having difficulty with IV access at [facility] and we will see if we can appeal for patientto come to our center for infusions. A. Disease modifying therapy and diagnostic plan: -Continue Tysabri per [facility] protocol (getting her infusion in [facility]) -She is due for annual [...] 30 minutes. The majority of the actual mvyd-pu-exqn visit was spent counseling the patient with respect to the current neurological picture. Kalina Gomez PA-C Cc: Dr. Castillo documented in this encounter Plan of Treatment Upcoming Encounters Date Type Department Care Team (Late st Contact Info) Description 05/01/2025 8:30 AM EST Office Visit [facility] 175 [facility] [address] [place] [phone] Kalina Gomez PA [address] [facility] [address] [place] [address] 10/15/2025 8:30 AM EDT Office Visit [facility] [address] [facility] [address] [place] [phone] Kalina Gomez PA [address] [facility] [address] [place] [address] documented as of this encounter Visit Diagnoses Not on filedocumented in this encounter Care Teams Kindergarten Tutor Relationship Specialty Start Date End Date Norberto Castillo MD [address] [place] [address] [address] [facility] [place] [address] PCP - General Internal Medicine 01/01/22 documented as of this encounter
--- OUTSIDE RECORDS SUMMARY | 2025-02-05 13:30 | XMS_ITS | Encounter Summary ---
Author Organization [facility] Address [address] [place] [address] Phone Care Team Providers Care Single Stroke Preformer Name Role Phone Norberto Castillo MD Primary Care Provider [phone] Reason for Visit * Physical Therapy (Routine) - Authorized Specialty Diagnoses / Procedures Referred By Contac t Referred To Contact Physical Therapy Diagnoses mixed urinary [place] [address] [place] [address] Phone: tel: [facility] [address] [place] [address] Phone: tel: Referral ID Status Reason Start Date Expiration Date V isits Requested Visits Authorized [id number] Authorized 01/22/2025 04/24/2025 99 99 Encounter Details Date Type Department Care Team (Latest Contact Info) Description 02/05/2025 1:30 PM EDT Office Visit [facility] [address] [place] [address] [facility] [place], [address] [place] [address] Jessica Hammer, PT [address] [place] [address] [email or web address] Urinary urgency (Primary Dx); Urinary frequency Social History Tobacco Use Types Packs/Day Years Used Date Smoking Tobacco: Never Assessed Education Answer Date Recorded Are you interested in more education? Not on christiano e 01/02/2025 Are you concerned about learning? Not on file 01/02/2025 No 01/02/2025 No 01/02/2025 Digital Access Answer Date Recorded No 01/02/2025 No 01/02/2025 Reliable internet access at home? Not on file 01/02/2025 Device with a working camera? Not on file Comments Unknown Sex and Gender Information Value Date Recorded Sex Assigned at Not on file Legal Sex Female 1:12 PM EST Gender Identity Not on file Sexual Orientation Not on file documented as of this encounter Progress Notes * Jessica Hammer, PT - 02/05/2025 1:30 PM EDT Physical Therapy Treatment Note Patient Name: Linette Rutledge Date of : 1975 Urinary urgency [R39.15] Precautions: None This patient has attended 3 visits since the onset Physical Therapy. Referring MD: Fabienne Olmstead, [address] [place] [address] Subjective comments: Pt reports she has been mindful of avoiding prophylactic voiding - including with a long car ride. Was able to go a full 4.5 hours at the longest between voids. She does find that the urge often goes away if she avoids using the bathroom before bladder is full. Interventions: See encounter report for minutes associated with each intervention. Interventions Min. Parameters MANUAL THERAPY 5 Ischemic pressure to L pubococcygeus THERAPEUTIC EXERCISE 40 Reviewed bladder diary: Min voiding interval: 2 hours Discussed palpating PFM at home Encouraged pt to tune into sensation of starting stream of urine PFM sustained holds - mod verbal cueing for both contraction and eccentric lengthening, most successful with cueing for wagging the tailbone NEURO RE-EDUCATION Home Exercise Program: PFM contract/relax with diaphragmatic breath Quick flicks Avoid prophylactic voiding 2 hour voiding interval Assessment and Plan: Increased tissue density noted at L pubococcygeus vs R which responds well to MT. Still some difficulty with full eccentric lengthening, so encouraged pt to tune into sensation of starting stream of urine while at home. Also discussed ways she may palpate PFM at home during HEPas she was not comfortable trying in session today with observation. Start Time: 1:30 End Time: 2:10 [place] Hammer, [place] [id number] documented in this encounter Plan of Treatment Upcoming Encounters Date Type Department Care Team (Late st Contact Info) Description 02/12/2025 1:30 PM EDT Office Visit [address] [address] [facility], [address] [address] Jessica Hammer, PT [address] [place] [address] 02/19/2025 1:30 PM EDT Office Visit [address] [address] [facility], [address] [address] Jessica Hammer, PT [address] [place] [address] [email or web address] 03/05/2025 1:30 PM EST Office Visit [address] [address] [facility], [address] [address] Jessica Hammer, PT [address] [place] [address] 03/12/2025 1:30 PM EST Office Visit [address] [address] [facility], [address] [address] Jessica Hammer, PT [address] [place] [phone] [email or web address] 03/19/2025 1:30 PM EST Office Visit [facility] [address] [place] [address] Fabienne Olmstead, DO [address] [facility] [address] [place] [address] Jessica Hammer, PT [address] [place] [address] [email or web address] documented as of this encounter Visit Diagnoses Diagnosis Urinary urgency- Primary Urgency of urination Urinary frequency documented in this encounter Care Teams Single Stroke Preformer Relationship Specialty Start Date End Date Jonathan, Norberto Murray MD [address] [place] [address] [place] [phone] PCP - General Internal Medicine 06/25/24 documented as of this encounter Additional Source Comments The information contained in this document represents components of the legal health record. It is not the complete legal health record.[facility]
--- NOTE | ~2025-02-07 | CT_ITS ---
EXAMINATION: CT ABDOMEN AND PELVIS WITHOUT CONTRAST CLINICAL INFORMATION: Right flank pain COMPARISON: None available. TECHNIQUE: Multidetector volumetric imaging was performed from the superior aspect of the liver through the pubic symphysis. Sagittal and coronal reformatted images were obtained on the technologist's workstation. This CT examination was performed using dose optimization techniques as appropriate, variously including the following: *Automated exposure control *Adjustment of mA and/or kV according to patient size (this includes techniques or standardized protocols for targeted exams where dose is matched to indication/reason for exam; i.e. extremities or head) *Use of iterative reconstruction technique. DLP: 628 mGy centimeter. FINDINGS: Inadequate evaluation of the intra-abdominal organs and vascular structures due to lack of IV contrast. LUNG BASES: No acute airspace disease or discrete pulmonary nodules. LIVER, GALLBLADDER, AND BILIARY TREE: Liver measures 15 cm. No intrahepatic biliary ductal dilatation. There are multiple, less than 13 mm polyvinyl normal shape calcific density abnormalities within the gallbladder lumen. No pericholecystic fluid collection or gallbladder wall thickening. Gallbladder is nondistended. No extrahepatic biliary ductal dilatation. PANCREAS: No peripancreatic fluid collections. No main pancreatic ductal dilatation. SPLEEN: 9 cm. ADRENAL GLANDS: No nodular lesions. KIDNEYS AND URETERS: No hydronephrosis. No nephrolithiasis. No dilatation of the ureters. BLADDER: Fluid-filled nearly collapsed. GASTROINTESTINAL TRACT: Appendix is normal. Small hiatal hernia. Scattered diverticula, left hemicolon. Abundant stool in the large intestine mostly at the rectosigmoid colon junction. Intestinal wall thickening versus collapsed peristaltic morphology pattern, distal transverse colon splenic colonic flexure/proximal descending colon.. No pneumatosis intestinalis. No intestinal obstruction pattern. No pneumatosis intestinalis. No ascites. No pneumoperitoneum. ABDOMINAL WALL: Small fat-containing umbilical hernia. LYMPH NODES: Nonspecific less than 1 cm mesenteric and retroperitoneal lymph nodes. VASCULAR: No aneurysm, abdominal aorta. No gross calcified plaques. PELVIC VISCERA: Inadequate evaluation. OSSEOUS STRUCTURES: A shaped curvature of the thoracolumbar spine with a dextroconvex curvature apex at L2-3. Spondylosis at L2-3 and L5-S1. Questionable central disc herniation at L5-S1 sclerosis and the sacroiliac joints. CT/CT abdomen pelvis wo IV con IMPRESSION: No hydronephrosis or nephrolithiasis. Appendix is normal. Cholelithiasis. Peristalsis versus focal acute to subacute inflammatory processes, splenic colonic flexure. Abundant stool without intestinal obstruction pattern or gross steroral colitis. Fleischner guidelines were followed. Electronically signed by: Neftali Jennings MD 02/07/2025 09:43 AM EDT
[2025-02-07 08:42] VITALS: BP 136/70; PULSE 80; O2SAT 99
[2025-02-07 08:51] VITALS: BP 131/85; PULSE 78; RESP 20; TEMP 36.7; O2SAT 98; BMI 36.6
--- NOTE | 2025-02-07 08:55 | ED.GENADULT ---
HPI - General Adult General Chief complaint: Back Pain/Injury Stated complaint: BACK PAIN,DIZZY,NAUSEA,H/O KIDNEY STONES Time Seen by Provider: 02/07/25 08:45 Source: patient and EMS Mode of arrival: EMS Limitations: no limitations History of Present Illness ED Provider: DR. Bethea HPI narrative: 49-year-old female brought in by EMS for evaluation of right lower back pain radiates to the front of the right lower abdomen started x3 days, patient declined any recent fall or injury to the back, no recent strenuous activity, no heavy lifting, +history of kidney stone many years ago, no history of intra abdominal surgery, no history of back problems. No fever, no chills, no dysuria, no frequency urination. Related Data Home Medications ?Medication ?Instructions ?Recorded ?Confirmed cholecalciferol (vitamin D3) 25 25 mcg PO DAILY 01/23/20 01/02/25 mcg (1,000 unit) capsule flaxseed oil 1,000 mg capsule 1,000 mg PO DAILY 01/23/20 01/02/25 calcium carbonate 600 mg PO DAILY 04/28/20 01/02/25 cyanocobalamin (vitamin B-12) 1,000 mcg PO DAILY 04/28/20 01/02/25 1,000 mcg capsule multivitamin 1 tab PO DAILY 04/28/20 01/02/25 omega-3 acid ethyl esters 1 gram 1 cap PO DAILY 04/28/20 01/02/25 capsule levonorgestrel-ethinyl estradiol 1 tab PO DAILY 08/30/22 01/02/25 0.1 mg-20 mcg tablet (Vienva) natalizumab 300 mg/15 mL 300 mg IV Q4W 08/30/22 01/02/25 intravenous solution (Tysabri) escitalopram oxalate 10 mg tablet mg PO 01/02/25 01/02/25 sumatriptan succinate 100 mg tablet 100 mg PO ONCE PRN migraine 01/02/25 01/02/25 trospium 60 mg capsule,extended 60 mg PO QAM 01/02/25 01/02/25 release 24 hr Previous Rx's ?Medication ?Instructions ?Recorded epinephrine 0.3 mg/0.3 mL 0.3 mg (0.3 mL) IM Q10M PRN 01/21/21 injection, auto-injector anaphylaxis #2 ea scopolamine base 1 mg over 3 days 1 patch transdermal Q3D PRN motion 01/30/24 transdermal patch (Transderm-Scop) sickness #4 ea Allergies Allergy/AdvReac Type Severity Reaction Status Date / Time oxycodone AdvReac Intermediate dizzy Verified 02/07/25 08:53 Review of Systems Review of Systems: All other systems are reviewed and are negative Constitutional: Reports as per HPI and Reports no additional constitutional complaints Eyes: Reports as per HPI and Reports no additional eye complaints Reports system reviewed and no additional complaints, except as documented Cardiovascular: Reports as per HPI and Reports no additional cardiovascular complaints Respiratory: Reports as per HPI and Reports no additional respiratory complaints Gastrointestinal: Reports as per HPI and Reports no additional gastrointestinal complaints Genitourinary: Reports no additional female genitourinary complaints Musculoskeletal: Reports no additional musculoskeletal complaints Skin/Breast: Reports system reviewed and no additional complaints, except as docu Psychiatric: Reports no additional psychiatric complaints Endocrine: Reports no additional endocrine complaints Hematologic/Lymphatic: Reports no additional hematologic/lymphatic complaints Allergic/Immunologic: Reports no additional allergic/immunologic complaints Reports system reviewed and no additional complaints, except as documented and Reports Abnormal speech present [facility] Past Medical History Medical History Colon cancer screening School health examination Annual physical exam Kidney stone Allergic reaction Leukopenia Optic neuritis Multiple sclerosis Surgical History Varicose veins of both lower extremities Uterine polyp History of section H/O arthroscopy of left knee Family History Family History Father Myocardial infarction Mother No problems noted. Paternal Aunt Breast cancer Heart disease Maternal Grandmother No problems noted. Paternal Uncle Heart disease Social History Social History Housing: House Alcohol intake: current Alcohol intake frequency: a few times a week Comment: 5x a week 1 glass. stopped 07/2024 Patient Tobacco Use Status: Never used Tobacco Tobacco use type: Cigarette Years Smoked: occ CBD e-Cigarette/Vaping Use: Never Used Second Hand Smoke Exposure: No Use of substances other than those prescribed or required for medical reasons: No Advance Directives: No Advance Directives Information Provided: Yes Do you have a plan to hurt others: No Plan service: No Current occupational status: unemployed Cognitive needs: No Hearing needs: No Vision needs: Yes Physical Exam ED Vital Signs: Vital Signs - 24 hr 02/07/25 08:51 02/07/25 11:54 Temperature 98.0 F 98.3 F Pulse Rate 78 73 Respiratory Rate 20 16 Blood Pressure 131/85 120/73 Pulse Oximetry 98 98 Oxygen Delivery Method Room Air Room Air BMI result Body Mass Index 36.6 Vital signs have been reviewed and appear to be correct. Blood pressure elevated. Heart rate normal. Respiratory rate normal. Temperature normal. Oxygen saturation normal. Appearance: Alert. Oriented X3. No acute distress. Head: Normal external exam. Normocephalic. Atraumatic. No Sutherland signs noted. No raccoon eyes noted Eyes: PERRLA. EOMI. Conjunctiva and sclera normal. Eyelids normal. ENT: TM's Normal. Pharynx normal. Uvula midline. Moist mucous membranes. No trismus noted. No drooling noted. No muffled voice noted. Neck: Normal inspection. Neck supple. FROM. No adenopathy. Thyroid Normal. No meningeal signs. No neck mass noted. CVS: Normal heart rate and rhythm. Heart sound normal. No murmurs noted. Pulses normal throughout. Respiratory: No respiratory distress. Painless inspiration. Breath sounds normal. No wheezes/rales/rhonchi noted. Chest nontender. No accessory muscle usage noted or decreased air movement noted. Abdomen: Soft and nontender. Bowel sounds normal in all 4 quadrants. No distention noted. No organomegaly noted. No visible injury noted. Back: Limited range of motion secondary to pain. Skin: Skin warm and dry. Normal skin color. Normal skin turgor. No rashes/lesions/lacerations noted. Extremities: No lower extremity edema. Extremities exhibit normal range of motion. Extremities nontender. Neuro: Oriented X 3. Cranial nerve exam: II-XII are grossly intact No motor deficit. No sensory deficit. Reflexes normal. Course Reevaluation(s) Reevaluation #1: 49-year-old female came in for evaluation of low back pain, no recent injury or fall, physical exam consistent with muscular pain, CT abdomen and pelvis and labs are unremarkable for acute pathology patient stated that pain went from 10/10 now it is 1/10 able to walk and ambulate at her baseline, Will discharge to follow-up with PCP. Time: 13:05 Medications Administered Discontinued Medications Generic Name Dose Route Start Last Admin Trade Name Ashwin PRN Reason Stop Dose Admin Ketorolac Tromethamine 30 mg 02/07/25 08:52 02/07/25 09:13 Ketorolac Tromethamine 30 Mg/Ml Vial IVPUSH 02/07/25 08:53 30 mg ONCE ONE Administration Morphine Sulfate 2 mg 02/07/25 08:52 02/07/25 09:13 Morphine Sulfate 2 Mg/Ml Cartridge IVPUSH 02/07/25 08:53 2 mg ONCE ONE Administration Protocol Medical Decision Making Differential Diagnosis Differential Diagnoses: The differential diagnosis associated with the presentation includes (Kidney stone, pulled muscle, disc herniation, ovarian cyst, acute appendicitis, pyelonephritis, electrolyte derangement, severe anemia.) Admission/Observation Consideration of admission/observation: Escalation of care including admission/observation considered Lab Data MDM Lab Attestation statement: I reviewed the patient's lab results. 02/07/25 09:08 02/07/25 09:07 Labs: Lab Results 02/07/25 02/07/25 02/07/25 Range/Units 09:07 09:08 11:44 WBC 9.6 (4.8-10.8) X10*3/uL RBC 4.97 (4.20-5.50) X10*6/uL Hgb 14.1 (12.0-16.0) g/dl Hct 42.5 (37.0-47.0) % MCV 85.5 (80.0-98.0) fL MCH 28.4 (27.0-33.0) pg MCHC 33.2 (31.0-35.0) g/dl RDW 13.4 (11.0-16.0) % Plt Count 237 (160-400) X10*3/uL MPV 9.4 (9.4-12.3) fL Immature Gran % (Auto) 0.6 H (0.0-0.4) % Neut % (Auto) 63.0 (45-73) % Lymph % (Auto) 27.7 (20-40) % [place] % (Auto) 6.8 (2-11) % Eos % (Auto) 1.4 (0-4) % Baso % (Auto) 0.5 (0-2) % Lymph # (Auto) 2.7 (1.2-4.9) X10*3/uL [place] # (Auto) 0.7 (0.1-1.2) X10*3/uL Eos # (Auto) 0.1 (0.0-0.4) X10*3/uL Baso # (Auto) 0.1 (0.0-0.2) X10*3/uL Abs Immat Gran (auto) 0.06 H (0.00-0.03) X10*3/uL Absolute Neuts (auto) 6.0 (2.0-8.3) x10*3/uL Absolute Nucleated RBC 0.050 H (0.0-0.012) X10*3/uL Nucleated RBC % (auto) 0.5 H (0.0-0.2) /100WBC Sodium 139 (135-145) mmol/L Potassium 5.0 D (3.3-5.1) mmol/L Chloride 111 H (96-108) mmol/L Carbon Dioxide 20 L (22-29) mmol/L Anion Gap 13 (12-20) BUN 16 (9-16) mg/dL Creatinine 0.67 (0.5-1.4) mg/dL Estim Creat Clear Calc 98.3 Estimated GFR > 60 Random Glucose 114 (60-115) mg/dL Calcium 9.2 (8.4-10.2) mg/dL Total Bilirubin 0.4 (0.0-1.0) mg/dL Direct Bilirubin 0.1 (0.0-0.5) mg/dL AST 23 (5-31) U/L ALT 27 (0-31) U/L Alkaline Phosphatase 57 (39-117) U/L Total Creatine Kinase 49 (26-140) U/L Troponin I High Sens < 2.7 (<3.5-17.0) ng/L Total Protein 7.1 (6.5-8.0) g/dL Albumin 4.5 (3.5-5.0) g/dL Lipase 30 (8-78) U/L Urine Color Yellow Urine Appearance Clear Urine pH 6.0 (5.0-9.0) Ur Specific [place] 1.020 (1.005-1.025) Urine Protein Negative (Neg-Trace) mg/dL Urine Glucose (UA) Negative (Negative) mg/dL Urine Ketones 15 (Negative) mg/dL Urine Blood Negative (Negative) Urine Nitrite Negative (Negative) Ur Leukocyte Esterase Negative (Negative) Independent Interpretation I performed an independent interpretation of an: CT Scan (Abdomen and pelvis:1. There is no evidence of significant stenosis, occlusion, dissection, or aneurysm of the major intracranial arterial vasculature. 2. Major cortical and dural venous sinuses are patent. 3. There is no space-occupying hemorrhage or evidence for evolving infarction.) Radiology Impression Discussion of test interpretation with radiology: I have reviewed the radiologist's reading. Discharge Plan Discharge Clinical Impression: Back pain Patient Disposition: Home, Self-Care Instructions: Acute Low Back Pain (ED) Additional Instructions: Rest, take ibuprofen or Tylenol tablets [id number] every 6 hours if needed for pain, heating pad, return to the emergency department if pain become worse. Prescriptions: No Action epinephrine 0.3 mg/0.3 mL auto-injector 0.3 mg IM Q10M PRN (Reason: anaphylaxis) Qty: 2 0RF Rx Instructions: for 2 doses scopolamine base [Transderm-Scop] 1 mg over 3 days patch 3 day 1 patch transdermal Q3D PRN (Reason: motion sickness) Qty: 4 0RF levonorgestrel-ethinyl estrad [Vienva] 0.1-20 mg-mcg tablet 1 tab PO DAILY Tysabri 300 mg/15 mL Solution 300 mg IV Q4W Rx Instructions: administer over 60 mins cholecalciferol (vitamin D3) 25 mcg (1,000 unit) capsule 25 mcg PO DAILY flaxseed oil 1,000 mg capsule 1,000 mg PO DAILY Rx Instructions: administer with a meal multivitamin Tablet 1 tab PO DAILY cyanocobalamin (vitamin B-12) 1,000 mcg capsule 1,000 mcg PO DAILY omega-3 acid ethyl esters 1 gram capsule 1 cap PO DAILY calcium carbonate 600 mg calcium (1,500 mg) tablet 600 mg PO DAILY sumatriptan succinate 100 mg tablet 100 mg PO ONCE PRN (Reason: migraine) escitalopram oxalate 10 mg tablet PO trospium 60 mg capsule,extended release 24hr 60 mg PO QAM Referrals: Po,Norberto Moraes MD [Primary Care Provider, Internal Medicine] Print Language: [place]
[2025-02-07 09:11] LABS: MANUAL DIFF FLAG NO
[2025-02-07 09:17] LABS: Hematocrit 42.5 % (37.0-47.0); Hemoglobin 14.1 g/dl (12.0-16.0); Imm Gran Abs Auto 0.06 X10*3/uL (0.00-0.03); Imm Gran Pct Auto 0.6 % (0.0-0.4); Lymphocytes Absolute Auto 2.7 X10*3/uL (1.2-4.9); Mean Corpuscular HGB Conc 33.2 g/dl (31.0-35.0); Mean Corpuscular Hemoglobin 28.4 pg (27.0-33.0); Mean Corpuscular Volume 85.5 fL (80.0-98.0); NRBC Abs Auto 0.050 X10*3/uL (0.0-0.012); NRBC Pct Auto 0.5 /100WBC (0.0-0.2); Platelet Count 237 X10*3/uL (160-400); Red Blood Count 4.97 X10*6/uL (4.20-5.50); White Blood Count 9.6 X10*3/uL (4.8-10.8)
[2025-02-07 09:40] LABS: Alanine Aminotransferase 27 U/L (0-31); Albumin Level 4.5 g/dL (3.5-5.0); Alkaline Phosphatase 57 U/L (39-117); Anion Gap 13 (12-20); Aspartate Amino Transferase 23 U/L (5-31); Blood Urea Nitrogen 16 mg/dL (9-16); Calcium 9.2 mg/dL (8.4-10.2); Carbon Dioxide 20 mmol/L (22-29); Chloride 111 mmol/L (96-108); Creatinine Clr Calc Pharmacy 98.3; Estimated Glomerular Filt Rate > 60; Lipase 30 U/L (8-78); Potassium 5.0 mmol/L (3.3-5.1); Sodium 139 mmol/L (135-145); Total Protein 7.1 g/dL (6.5-8.0); Troponin-I High Sensitivity < 2.7 ng/L (<3.5-17.0)
--- NOTE | 2025-02-07 10:45 | PC.NURSE ---
pt is alert and oriented, skin pwd, respirations even and unlabored, pt states right sided lower back pain that radiates to the front with nausea since Tuesday, no urinary symptoms denies fall/injury hx of kidney stones but this feels deferent pt reports pain is better after the medication pain at 4/
--- OUTSIDE RECORDS SUMMARY | 2025-02-07 11:02 | XMS_ITS | Clinical Summary ---
Author Organization [facility] Address [address] [place] [address] Care Team Providers Care Stripping Shovel Oiler Name Role Phone Po, Norberto SUAREZ Primary Care Provider [phone] Allergies Active Allergy Reactions Criticality Noted Date Comments Acetaminophen Unknown 03/16/2022 [place] Itching,Other 07/05/2022 Kiwi 07/05/2022 ALMONDS Oxycodone Unknown 03/16/2022 Oxycodone-Acetaminophen 02/18/2022 Medications Vienva 0.1-20 mg-mcg per tablet Take 1 tablet by mouth 1 (one) time each day. Active natalizumab (Tysabri) 300 mg/15 mL injection as directed Intravenous 05/12/19 23 Active scopolamine (TRANSDERM-SCO P) 1 mg over 3 days patch 3 day APPLY 1 PATCH TRANSDERMALLY EVERY 3 DAYS NEEDED FOR MOTION SICKNESS 01/30/20 24 Active trospium 60 mg capsule,extend ed release 24hr 10/14/19 25 Active escitalopram (Lexapro) 10 mg tablet 1/2 po qd x 1 week, then 1 po qd 30 each 5 10/16/19 25 Active SUMAtriptan (IMITREX) 100 mg tablet Take 1 tablet (100 mg total) by mouth 1 (one) time if needed for migraine. 9 tablet 1 01/19/20 25 Active SUMAtriptan (IMITREX) 100 mg tablet Take 1 tablet (100 mg total) by mouth 1 (one) time if needed for migraine. 9 tablet 1 07/11/19 25 025 Discontin ued(Reord er) Encounters Date Type Department Care Team Description 12/26/2024 8:30 AM EDT Office Visit [facility] [address] [place] [address] Kalina Gomez PA Multiple sclerosis ([facility] V24, [facility] V28) (Primary Dx) 11/14/2024 Telephone [facility] [place] [address] [place] [address] Kalina Gomez PA from Last 3 Months Immunizations Immunization Administration Dates Next Due DTaP (Infanrix) 6wks [...] Medical History Date Comments MS (multiple sclerosis) DX:MS (m ultiple sclerosis) ([facility]) Family History Medical History Relation Name Comments [...] Description 05/01/2025 8:30 AM EST Office Visit [facility] [address] [phone] Kalina Gomez PA [address] [address] 10/15/2025 8:30 AM EDT Office Visit [facility] [address] [phone] Kalina Gomez PA [address] [address] Health Maintenance Due Date Last Done Comments Breast Cancer Screening 1975 Colorectal Cancer Screening: Colonoscopy 1975 Hepatitis B Vaccines (1 of 3 - 19+ 3-dose series) 1994 Cervical Cancer Screening: Pap Smear 1996 HIV Screening 04/03/2022 Hepatitis C Screening 04/03/2022 Social Influencers of Health Screening 04/03/2022 Depression Screening 04/25/2024 Influenza Vaccine (#1) 2024 , 02/12/2023, 01/23/2022, Additional history exists DTaP,Tdap,and Td Vaccines (4 - Td or Tdap) 09/10/2032 09/10/2022, 04/28/2020, 05/24/2012 RSV Immunization Adult Patients (1 - 1-dose 75+ series) 2050 Pneumococcal Vaccine: Pediatrics (0 to 5 Years) [...] patient's age to complete this topic Insurance [facility] Care Teams Stripping Shovel Oiler Relationship Specialty Start Date End Date Norberto Castillo MD [address] [place] [address] [address] [facility] [place] [address] PCP - General Internal Medicine 01/01/22
--- OUTSIDE RECORDS SUMMARY | 2025-02-07 11:02 | XMS_ITS | Clinical Summary ---
Author Organization [facility] Address [address] [place] [address] Phone Care Team Providers Care Flat Spring Assembler Name Role Phone Norberto Castillo MD Primary Care Provider [phone] Allergies No known active allergies Medications No known medications Active Problems No known active problems Encounters Date Type Department Care Team Description 02/05/2025 1:30 PM EDT Office Visit [facility] [address] [place] [address] Fabienne Olmstead DO Wolk, Jessica Nicole, PT Urinary urgency (Primary Dx); Urinary frequency 01/29/2025 1:30 PM EDT Office Visit [address] [address] Fabienne Olmstead, DO Lordk, Jessica Bonnie, PT Urinary urgency (Primary Dx); Urinary frequency 01/22/2025 1:30 PM EDT Office Visit [address] [address] Fabienne Olmstead DO Wolk, Jessica Nicole, PT Urinary urgency (Primary Dx); Urinary frequency 01/18/2025 Transcribe Orders [address] [address] Fabienne Olmstead DO Encounter for rehabilitation (Primary Dx) from Last 3 Months Social History Tobacco Use Types Packs/Day Years [...] Description 02/12/2025 1:30 PM EDT Office Visit [facility] [address] [place] [address] [facility], [address] [address] Jessica Hammer, PT [address] [place] [phone] 02/19/2025 1:30 PM EDT Office Visit [facility] [address] [place] [address] [facility], [address] [address] Jessica Hammer, PT [address] [place] [phone] 03/05/2025 1:30 PM EST Office Visit [facility] [address] [place] [address] [facility], [address] [address] Jessica Hammer, PT [address] [place] [phone] 03/12/2025 1:30 PM EST Office Visit [facility] [address] [place] [address] AyshaFabienne kaminski, [address] [facility] [address] [place] [address] Jessica Hammer, PT [address] [place] [phone] 03/19/2025 1:30 PM EST Office Visit [facility] [address] [place] [address] AyshaFabienne velarde, DO [address] [facility] [address] [place] [address] Jessica Hammer, PT [address] [place] [phone] Health Maintenance Due Date Last Done Comments Adult Td,Tdap Booster 1975 LIPID PANEL 1975 DEPRESSION SCREENING 1987 SMOKING Hx and SMOKELESS TOB ACCO SCREENING 1988 HEPATITIS C SCREENING 1993 HIV ONE-TIME SCREENING (18-6 5 YEARS) 1993 PAP SMEAR 1996 MAMMOGRAM 2015 COLOGUARD 2020 COLONOSCOPY 2020 COLORECTAL CANCER SCREENING 2020 FIT TEST 2020 FOBT 2020 SIGMOIDOSCOPY 2020 VIRTUAL COLONOSCOPY 2020 INFLUENZA VACCINE (#1) 2024 COVID-19 VACCINE ( - 2024-2 6 season) 2024 HEPATITIS A VACCINES Aged Out No long [...] this topic Medical Devices Not on file Procedures Procedure Name Priority Date/Time Associated Diagnosis Comments AMB REFERRAL TO [facility] Routine 01/22/2025 2:21 PM EDT Encounter for rehabilitation from Last 3 Months Results * Ambulatory referral to [facility] Physical Therapy (01/22/2025 2:21 PM EDT) Other Fabienne Olmstead DO AMB [facility] REFERRALS Final Re sult from Last 3 Months Insurance [employer] [place] STATE PPO [employer] [place] OUT OF [facility] PPO [employer] [place] OUT OF STATE PPO BLUE [place] OUT [place] STATE PPO [employer] [place] OUT OF STATE PPO [place], [place] [id number] [place] [address] OUT STATE PPO Care Teams Flat Spring Assembler Relationship Specialty Start Date End Date Norberto Castillo MD [address] [place] [phone] PCP - General Internal Medicine 06/25/24 Additional Source Comments The information contained in this document represents components of the legal health record. It is not the complete legal health record.[facility]
--- OUTSIDE RECORDS SUMMARY | 2025-02-07 11:02 | XMS_ITS | Patient Health Record ---
Author Organization [facility] Address [address] [place] [address] Care Team Providers Care Out Patient Therapist Name Role Phone Norberto Castillo MD Primary Care Provider Carlitos Boyer [phone] Allergies No Known Allergies Reason For Referral No Information Medications Medication SIG (Take, Route, Fr equency, Duration) Notes Start Date End Date Status Fish Oil Active Vienva 0.1-20 MG-MCG Oral; Duration: 28 Active Tysabri 300 MG/15ML as directed [...] Problem Status W/U Status Risk Notes Problem Screening for malignant neoplasm of colon (648083131) Screen for colon cancer (Z12.11) Active confirmed Problem Preprocedural examination (725003168470731) Preprocedural examination (Z01.818) Active confirmed Problem Diverticulosis of colon (213585164) Diverticulosis of colon (K57.30) Active confirmed Plan Of Treatment Future Test Test Name Order Date COLONOSCOPY 05/12/2022 Insurance Providers Payer Name Payer Address Payer Phone Subscriber Number Group Number Insured Name Patient Relationship to Insured Coverage Start Date Coverage End Date [facility] [address] [place] [address] [phone] [id number] RELL MAHER Self - patient is the insured Medical (General) History Medical History History ICD Code Kidney stones Multiple sclerosis-for 4 years-sees Dr. Samuels at [facility] Denies NC,DM,CVA,Lung disease,renal dise ase Surgical History Surgery Date(Month/Year)
--- OUTSIDE RECORDS SUMMARY | 2025-02-07 11:02 | XMS_ITS | Clinical Summary ---
Author Organization [facility] Address [address] [place] [address] Care Team Providers Care Quality Coordinator Name Role Phone Norberto Castillo MD Primary Care Provider [phone] Allergies Active Allergy Reactions Criticality Noted Date Comments [place]arton Other (See Comments) 07/05/2022 Kiwi 07/05/2022 ALMONDS Oxycodone-Acetaminophen 02/18/2022 Medications Medication Sig Dispensed Refills Start Date End Date Status Vienva 0.1-20 MG-MCG per tablet Take 1 tablet by mouth daily. 0 05/06/2022 Active Natalizumab (TYSABRI IV) Inject into the vein. 0 Active [place]-3 Fatty Acids (Fish Oil) 1000 MG CAPS [...] age to complete this topic Care Teams Quality Coordinator Relationship Specialty Start Date End Date PoNorberto MD [address] [place] [address] Dr Paige [address] [place] [facility] [place] [address] PCP - General Internal Medicine 01/01/22
[2025-02-07 11:50] LABS: Appearance Urine Clear; Glucose Urine UA Negative (Negative); PH 6.0 (5.0-9.0); Specific Gravity - Urine 1.020 (1.005-1.025)
[2025-02-07 11:54] VITALS: BP 120/73; PULSE 73; RESP 16; TEMP 36.8; O2SAT 98
[2025-02-07 13:31] VITALS: BP 120/73; PULSE 73; RESP 16; TEMP 36.8; O2SAT 98
== END 2025-02-07 13:32 | disposition home or self-care (01) ==
PROVIDERS: Emergency Provider Emergency Medicine; PCP Internal Medicine
DX: M54.50 Low back pain, unspecified (principal); R42 Dizziness and giddiness; R11.0 Nausea; R10.31 Right lower quadrant pain; Z87.442 Personal history of urinary calculi; Z79.899 Other long term (current) drug therapy
CPT/HCPCS: 36415; 74176; 80048; 80076; 81003; 82550; 83690; 84484; 85025; 96374; 96375; 99284; J1885; J2270

== ENCOUNTER → 2025-02-07 08:54 | Outpatient (BNV) | payer BC, SELFPAY | PROVIDERS: Emergency Provider Emergency Medicine; PCP Internal Medicine; Visit Provider Radiology Diagnostic Radiology | DX: K80.20 Calculus of gallbladder without cholecystitis without obstruction (principal) | CPT/HCPCS: 74176 ==

== ENCOUNTER 2025-02-09 07:07 | Outpatient (REF) | payer BC, SELFPAY ==
--- OUTSIDE RECORDS SUMMARY | 2024-02-17 13:01 | XMS_ITS | Encounter Summary ---
Author Organization [facility] Address [address] [place] [address] Care Team Providers Care Shoe Shiner Name Role Phone Norberto Castillo MD Primary Care Provider [phone] Encounter Details Date Type Department Care Team (Late st Contact Info) Description 02/17/2024 1:01 PM EDT Hospital Encounter TH HISTORIC ENCOUNTERS EASTERN CONVERSION ONLY Kalina Gomez PA [address] [facility] [address] [place] [address] Social History Tobacco Use Types Packs/Day Years [...] AUGUSTO Feliz - 02/17/2024 1:00 PM EDT [facility] Cc: MS HPI: Patient [...] into the vein., Disp: , Rfl: ??? [place]-3 Fatty Acids (Fish Oil) 1000 MG CAPS, [...] been having difficulty with IV access at [facility] and we will see if we can appeal for patientto come to our center for infusions. A. Disease modifying therapy and diagnostic plan: -Continue Tysabri per [facility] protocol (getting her infusion in [facility]) -She is due for annual MRI [...] 30 minutes. The majority of the actual ieyz-av-dngi visit was spent counseling the patient with respect to the current neurological picture. Kalina Gomez PA-C Cc: Dr. Castillo documented in this encounter Plan of Treatment Upcoming Encounters Date Type Department Care Team (Late st Contact Info) Description 05/01/2025 8:30 AM EST Office Visit [facility] [address] [facility] [address] [place] [phone] Kalina Gomez PA [address] [facility] [address] [place] [address] 10/15/2025 8:30 AM EDT Office Visit [facility] [address] [place] [address] Kalina Gomez PA [address] [facility] [address] [place] [address] documented as of this encounter Visit Diagnoses Not on filedocumented in this encounter Care Teams Shoe Shiner Relationship Specialty Start Date End Date Norberto Castillo MD [address] [place] [address] [address] [facility] [place] [address] PCP - General Internal Medicine 01/01/22 documented as of this encounter
--- OUTSIDE RECORDS SUMMARY | 2025-02-05 13:30 | XMS_ITS | Encounter Summary ---
Author Organization [facility] Address [address] [place] [address] Phone Care Team Providers Care Conduit Cleaner Name Role Phone Norberto Castillo MD Primary Care Provider [phone] Reason for Visit * Physical Therapy (Routine) - Authorized Specialty Diagnoses / Procedures Referred By Contac t Referred To Contact Physical Therapy Diagnoses mixed urinary [place] [address] [place] [address] Phone: tel: [facility] [address] [place] [address] Phone: tel: Referral ID Status Reason Start Date Expiration Date V isits Requested Visits Authorized [id number] Authorized 01/22/2025 04/24/2025 99 99 Encounter Details Date Type Department Care Team (Latest Contact Info) Description 02/05/2025 1:30 PM EDT Office Visit [facility] [address] [place] [address] [facility] [address] [place] [address] Jessica Hammer, PT [address] [place] [address] [email or web address] Urinary urgency (Primary Dx); Urinary frequency Social [...] Physical Therapy. Referring MD: Fabienne Olmstead, [address] [place] [address] Subjective comments: Pt reports she has been [...] 1:30 End Time: 2:10 Jessica Hammer, [place] [id number] documented in this encounter Plan of Treatment Upcoming Encounters Date Type Department Care Team (Late st Contact Info) Description 02/12/2025 1:30 PM EDT Office Visit [address] [address] [facility], [address] [address] Jessica Hammer, PT [address] [place] [address] 02/19/2025 1:30 PM EDT Office Visit [address] [address] [facility], [address] [address] Jessica Hammer, PT [address] [place] [address] 03/05/2025 1:30 PM EST Office Visit [address] [address] [facility], [address] [address] Jessica Hammer, PT [address] [place] [address] 03/12/2025 1:30 PM EST Office Visit [address] [address] [facility], [address] [address] Jessica Hammer, PT [address] [place] [phone] [email or web address] 03/19/2025 1:30 PM EST Office Visit [facility] [address] [place] [address] Fabienne Olmstead, DO [address] [facility] [address] [place] [address] Jessica Hammer, PT [address] [place] [address] [email or web address] documented as of this encounter Visit Diagnoses Diagnosis Urinary urgency- Primary Urgency of urination Urinary frequency documented in this encounter Care Teams Conduit Cleaner Relationship Specialty Start Date End Date Jonathan, Norberto Murray MD [address] [place] [address] [place] [phone] PCP - General Internal Medicine 06/25/24 documented as of this encounter Additional Source Comments The information contained in this document represents components of the legal health record. It is not the complete legal health record.[facility]
--- NOTE | ~2025-02-09 | XR_ITS ---
EXAMINATION: XR HAND 3 OR MORE VIEWS LEFT HISTORY: M79.642 - Pain in left hand COMPARISON: There are no prior studies available for comparison. FINDINGS: Three views of the left hand are submitted. Osseous mineralization is normal. There is no fracture or dislocation. The joint spaces are preserved. The soft tissues are unremarkable. XR/XR hand LT min 3V IMPRESSION: Unremarkable examination of the left hand. Electronically signed by: Carlitos Sanchez MD 02/11/2025 07:38 AM EDT
--- OUTSIDE RECORDS SUMMARY | 2025-02-09 07:10 | XMS_ITS | Clinical Summary ---
Author Organization [facility] Address [address] [place] [address] Phone Care Team Providers Care Metal Furnace Operator Name Role Phone Norberto Castillo MD Primary Care Provider [phone] Allergies No known active allergies Medications No known medications Active Problems No known active problems Encounters Date Type Department Care Team Description 02/05/2025 1:30 PM EDT Office Visit [facility] [address] [place] [address] Fabienne Olmstead DO Wolk, Jessica Nicole, PT Urinary urgency (Primary Dx); Urinary frequency 01/29/2025 1:30 PM EDT Office Visit [address] [address] Fabienne Olmstead, DO Lordk, Jessica Bonnie, PT Urinary urgency (Primary Dx); Urinary frequency 01/22/2025 1:30 PM EDT Office Visit [address] [address] Fabienne Olmstead DO Wolk, Jessica Nicole, PT Urinary urgency (Primary Dx); Urinary frequency 01/18/2025 Transcribe Orders [address] [address] Fabienne Olmstead DO Encounter for rehabilitation (Primary [...] Description 02/12/2025 1:30 PM EDT Office Visit [facility] [address] [place] [address] [facility], [address] [address] Jessica Hammer, PT [address] [place] [phone] 02/19/2025 1:30 PM EDT Office Visit [facility] [address] [place] [address] [facility], [address] [address] Jessica Hammer, PT [address] [place] [phone] 03/05/2025 1:30 PM EST Office Visit [facility] [address] [place] [address] [facility], [address] [address] Jessica Hammer, PT [address] [place] [phone] 03/12/2025 1:30 PM EST Office Visit [facility] [address] [place] [address] AyshaFabienne kaminski, [address] [facility] [address] [place] [address] Jessica Hammer, PT [address] [place] [address] 03/19/2025 1:30 PM EST Office Visit [facility] [address] [place] [address] AyshaFabienne velarde, DO [address] [facility] [address] [place] [address] Jessica Hammer, PT [address] [place] [address] Health Maintenance Due Date Last [...] Re sult from Last 3 Months Insurance [employer] [place] OUT OF STATE PPO [employer] [place] OUT OF [facility] PPO [employer] [place] OUT OF STATE PPO BLUE [place] OUT OF STATE PPO [employer] [place] OUT OF [place] [id number] [place] [address] OUT STATE PPO Care Teams Metal Furnace Operator Relationship Specialty Start Date End Date Norberto Castillo MD [address] [place] [phone] PCP - General Internal Medicine 06/25/24 Additional Source Comments The information contained in this document represents components of the legal health record. It is not the complete legal health record.[facility]
--- OUTSIDE RECORDS SUMMARY | 2025-02-09 07:10 | XMS_ITS | Patient Health Record ---
Author Organization [facility] Address [address] [place] [address] Care Team Providers Care Mental Tester Name Role Phone Norberto Castillo MD Primary Care Provider Carlitos Boyer [phone] Allergies No Known Allergies Reason For Referral [...] Problem Screening for malignant neoplasm of colon (091384418) Screen for colon cancer (Z12.11) Active confirmed Problem Preprocedural examination (260961407479394) Preprocedural examination (Z01.818) Active confirmed Problem Diverticulosis of colon (980709790) Diverticulosis of colon (K57.30) Active confirmed Plan Of Treatment Future Test Test Name Order Date COLONOSCOPY 05/12/2022 Insurance Providers Payer Name Payer Address Payer Phone Subscriber Number Group Number Insured Name Patient Relationship to Insured Coverage Start Date Coverage End Date [facility] [address] [place] [address] [id number] RELL MAHER Self - patient is the insured Medical (General) History Medical History History ICD Code Kidney stones Multiple sclerosis-for 4 years-sees Dr. Samuels at [facility] Denies MT,DM,CVA,Lung disease,renal dise ase Surgical History Surgery Date(Month/Year)
--- OUTSIDE RECORDS SUMMARY | 2025-02-09 07:10 | XMS_ITS | Clinical Summary ---
Author Organization [facility] Address [address] [place] [address] Care Team Providers Care Detention Sergeant Name Role Phone Po, Norberto SUAREZ Primary Care Provider [phone] Allergies Active Allergy Reactions Criticality Noted Date [...] Description 12/26/2024 8:30 AM EDT Office Visit [facility] [address] [place] [address] Kalina Gomez PA Multiple sclerosis ([facility] V24, [facility] V28) (Primary Dx) 11/14/2024 Telephone [facility] [place] [address] [place] [address] Kalina Gomez PA from Last [...] MS (multiple sclerosis) DX:MS (m ultiple sclerosis) ([facility]) Family History Medical History Relation Name Comments [...] Description 05/01/2025 8:30 AM EST Office Visit [facility] [address] [phone] Kalina Gomez PA [address] [address] 10/15/2025 8:30 AM EDT Office Visit [facility] [address] [phone] Kalina Gomez PA [address] [address] Health Maintenance Due Date Last Done Comments [...] patient's age to complete this topic Insurance [facility] COMM[facility]CIAL GENERIC Care Teams Detention Sergeant Relationship Specialty Start Date End Date Norberto Castillo MD [address] [place] [address] [address] [facility] [place] [address] PCP - General Internal Medicine 01/01/22
--- OUTSIDE RECORDS SUMMARY | 2025-02-09 07:10 | XMS_ITS | Clinical Summary ---
Author Organization [facility] Address [address] [place] [address] Care Team Providers Care Contact Center Specialist Name Role Phone Norberto Castillo MD Primary Care Provider [phone] Allergies Active Allergy Reactions Criticality Noted Date Comments Wharton Other (See Comments) 07/05/2022 Kiwi 07/05/2022 ALMONDS Oxycodone-Acetaminophen 02/18/2022 Medications Medication Sig Dispensed Refills Start Date End Date Status Vienva 0.1-20 MG-MCG per tablet Take 1 tablet by mouth daily. 0 05/06/2022 Active Natalizumab (TYSABRI IV) Inject into the vein. 0 Active [place]-3 Fatty Acids (Fish Oil) 1000 MG CAPS [...] age to complete this topic Care Teams Contact Center Specialist Relationship Specialty Start Date End Date PoNorberto MD [address] [place] [address] [address] [place] [facility] [place] [address] PCP - General Internal Medicine 01/01/22
[2025-02-09 07:40] LABS: MANUAL DIFF FLAG NO
[2025-02-09 07:58] LABS: Hematocrit 42.5 % (37.0-47.0); Hemoglobin 14.1 g/dl (12.0-16.0); Imm Gran Abs Auto 0.05 X10*3/uL (0.00-0.03); Imm Gran Pct Auto 0.6 % (0.0-0.4); Lymphocytes Absolute Auto 2.8 X10*3/uL (1.2-4.9); Mean Corpuscular HGB Conc 33.2 g/dl (31.0-35.0); Mean Corpuscular Hemoglobin 28.7 pg (27.0-33.0); Mean Corpuscular Volume 86.6 fL (80.0-98.0); NRBC Abs Auto 0.060 X10*3/uL (0.0-0.012); NRBC Pct Auto 0.8 /100WBC (0.0-0.2); Platelet Count 257 X10*3/uL (160-400); Red Blood Count 4.91 X10*6/uL (4.20-5.50); White Blood Count 7.8 X10*3/uL (4.8-10.8)
[2025-02-09 08:44] LABS: Alanine Aminotransferase 25 U/L (0-31); Albumin Level 4.6 g/dL (3.5-5.0); Alkaline Phosphatase 57 U/L (39-117); Anion Gap 14 (12-20); Aspartate Amino Transferase 17 U/L (5-31); Blood Urea Nitrogen 14 mg/dL (9-16); Calcium 9.1 mg/dL (8.4-10.2); Carbon Dioxide 22 mmol/L (22-29); Chloride 110 mmol/L (96-108); Cholesterol 204 mg/dL (<200); Estimated Glomerular Filt Rate > 60; HDL Cholesterol 48 mg/dL (>40); Potassium 4.3 mmol/L (3.3-5.1); Sodium 142 mmol/L (135-145); Total Protein 7.1 g/dL (6.5-8.0); Triglycerides 110 mg/dL (<150)
[2025-02-09 09:04] LABS: Free T4 (Free Thyroxine) 0.97 ng/dL (0.71-1.85); Thyroid Stimulating Hormone 2.95 uIU/mL (0.32-4.0)
[2025-02-09 09:11] LABS: Folate 11.4 ng/mL (> or = 4.0); Vitamin B12 523 pg/mL (200-900)
[2025-02-11 17:28] LABS: Rubeola IgG (Measles) 138.00 AU/mL
== END 2025-02-09 07:08 | disposition home or self-care (01) ==
LOC: HO.XRAY 07:07
PROVIDERS: PCP Internal Medicine; Visit Provider Internal Medicine
DX: E78.00 Pure hypercholesterolemia, unspecified (principal); G35.D Multiple sclerosis, unspecified; Z02.0 Encounter for examination for admission to educational institution; M79.642 Pain in left hand
CPT/HCPCS: 36415; 73130; 80053; 80061; 82306; 82607; 82746; 84439; 84443; 85025; 86735; 86762; 86765; 86787

== ENCOUNTER → 2025-02-09 07:40 | Outpatient (BNV) | payer BC, SELFPAY | PROVIDERS: PCP Internal Medicine; Visit Provider Radiology Diagnostic Radiology | DX: M79.642 Pain in left hand (principal) | CPT/HCPCS: 73130 ==

== ENCOUNTER 2025-03-11 09:16 | Outpatient (REF) | payer BC, SELFPAY | END 2025-03-11 09:17 | disposition home or self-care (01) | LOC: HO.HOSX 09:16 | DX: Z13.89 Encounter for screening for other disorder (principal) ==

== ENCOUNTER 2025-03-15 13:36 | Outpatient (REF) | payer BC, SELFPAY ==
--- NOTE | ~2025-03-15 | XR_ITS ---
EXAMINATION: XR HAND 3 OR MORE VIEWS LEFT HISTORY: M79.642 - Pain in left hand COMPARISON: Comparison is made with the prior examination dated 02/09/2025. FINDINGS: Three views of the left hand are submitted. Osseous mineralization is normal. There is no fracture or dislocation. The thumb appears hyperextended at the MCP joint on all images. The joint spaces are preserved. The soft tissues are unremarkable. XR/XR hand LT min 3V IMPRESSION: Hyperextension at the MCP joint of the thumb. Otherwise unremarkable examination of the left hand. Electronically signed by: Carlitos Sanchez MD 03/15/2025 02:13 PM PEDRO
== END 2025-03-15 13:37 | disposition home or self-care (01) ==
LOC: HO.HOSX 13:36
PROVIDERS: PCP Internal Medicine
DX: S63.642A Sprain of metacarpophalangeal joint of left thumb, initial encounter (principal); W19.XXXA Unspecified fall, initial encounter
CPT/HCPCS: 73130

== ENCOUNTER 2025-03-15 13:36 | Outpatient (AMB) | payer BC, SELFPAY ==
--- OUTSIDE RECORDS SUMMARY | 2024-02-17 12:01 | XMS_ITS | Encounter Summary ---
Author Organization [facility] Address [address] [place] [address] Care Team Providers Care Color Artist Name Role Phone Norberto Castillo MD Primary Care Provider [phone] Encounter Details Date Type Department Care Team (Late st Contact Info) Description 02/17/2024 1:01 PM EDT Hospital Encounter TH HISTORIC ENCOUNTERS EASTERN CONVERSION ONLY Kalina Gomez PA [address] [place] [phone] Social History Tobacco Use Types Packs/Day Years Used Date Smoking Tobacco: Never Smokeless Tobacco: Never Alcohol Use Standard Drinks/Week Comments Never 0 (1 standard drink = 0.6 oz pur e alcohol) Comments Unknown Sex and Gender Information Value Date Recorded Sex Assigned at Not on file Legal Sex Female 9:45 AM EST Gender Identity Not on file Sexual Orientation Not on file documented as of this encounter Last Filed Vital Signs Vital Sign Reading Time Taken Comments Blood Pressure 125/86 02/17/2024 1:19 PM EDT Sitting Left arm Pulse 84 02/17/2024 1:19 PM EDT Temperature - - Respiratory Rate - - Oxygen Saturation - - Inhaled Oxygen Concentration - - Weight 84 kg (185 lb 3.2 oz) 10/19/2023 11:38 AM EDT Height 152.4 cm (5') 10/19/2023 11:38 AM EDT Body Mass Index 36.17 10/19/2023 11:38 AM EDT documented in this encounter Progress Notes * AUGUSTO Feliz - 02/17/2024 1:00 PM EDT [facility] MULTIPLE SCLEROSIS Cc: MS HPI: Patient is a 48 y.o. year old female who presents for follow-up regarding ongoing management of multiple sclerosis. Disease Summary Date of onset/Initial symptom presentation:2017?? Date of diagnosis of MS:??2018 Disease course at onset:??RRMS Current disease course:??RRMS Last MS exacerbation: Previous disease therapies(reason for switch):??Tecfidera??,Vumerity??enhancing Current disease therapy:??Tysabri 04/2022 Most recent MRI Brain: 03/2023 stable non enhancing 02/2022 (T2 and FLAIR hyperintensities in frontal parietal white matter and castorena radiata without enhancement, small T2 and flair hyperintense plaque at the left half of the janes, all unchanged compared to prior exam) Most recent MRI Cervical spine: 03/2023 stable non enhancing 02/2022 (few small focal enhanced lesions within the cord at C4 and T1) Most recent MRI Thoracic spine: 03/12/2022 (normal cord) CSF:??N/A JCV serology result and date:06/2023 negative 07/2022??neg (0.10) 02/18/22 MS mimickers:?? MOG neg, HIV neg, lyme neg, MAGALY + 1;1280 EDSS: 3.0 (06/2022) Interval history Patient returns for follow-up visit.She continues Tysabri for disease modifying therapy. She denies symptoms suggestive of demyelinating event since she was last seen in the office. She had a migraine for 3 days last week accompanied by significant fatigue. Pain is accompanied by blurred vision, pain R side of head. Denies nausea. Tends to happen when she is due for a tysabri infusion. She has been sleeping well at night napping during the day. She deneis recent illness/infection. Last office visit history reviewed: No new neurological symptom concerning for demyelination since last visit Patient still on Tysabri tolerating it well , she is scheduled in a week she gets her infusion in [place] Since last visit she has been stable , she is fatigued today she has been having some difficulty sleeping she is overall exhausted and fatigued, she denies any ongoing infection but some concern of aUTI discussed with the patient we will obtain UA to exclude a urinary tract infection She saw urology , she was not satisfied about care , she was started on gemtesa , she didn't tolerate it , will refer patient to urogynecology for evaluation She was evaluated by rheumatology no concerning finding Review of Systems Constitutional: Positive for fatigue. All other systems reviewed and are negative. Patient Active Problem List Diagnosis SNOMED CT(R) ??? Multiple sclerosis (HCC) MULTIPLE SCLEROSIS Current Outpatient Medications: ??? MULTIPLE VITAMINS-CALCIUM PO, Take by mouth., Disp: , Rfl: ??? Natalizumab (TYSABRI IV), Inject into the vein., Disp: , Rfl: ??? [place]-3 Fatty Acids (Fish Oil) 1000 MG CAPS, , Disp: , Rfl: ??? Vienva 0.1-20 MG-MCG per tablet, Take 1 tablet by mouth daily., Disp: , Rfl: ??? SUMAtriptan (IMITREX) 100 MG tablet, Take 1 tablet (100 mg total) by mouth every 2 (two) hours as needed for migraine. Max 2 per 24 hours., Disp: 10 tablet, Rfl: 5 Neuro Exam BP 125/86 (BP Location: Left arm, Patient Position: Sitting) Pulse 84 Temp 96.9 ??F (36.1 ??C) (Temporal) There is no height or weight on file to calculate BMI. General: A&Ox3 Cranial Nerves: PERRL, EOMI without nystagmus, facial strength symmetric, no facial droop, tongue protrusion midline, speech clear, shoulder shrug symmetric Motor: strength 5/5 bilateral UE & LE Sensory: Temperature sensation reduced to mid palm in hands and to mid saini lower extremities bilaterally Reflexes: 2+/4+ bilateral biceps, 2+/4+ bilateral patellar Cerebellar: FTN without dysmetria or ataxia bilaterally, normal Anay, no dysdiadochokinesia, negative Rhomberg Gait: normal stride, non-ataxic, no circumduction 25 foot timed walk: 5.9, 6.2 seconds (6.6, 6.6 last visit) A/P: Multiple Sclerosis: Linette Rutledge is a 48-year-old female with relapsing MS treated with Tysabri for disease therapy. She remains stable overall from an MS perspective and this will be continued. Apparently nursing staff has been having difficulty with IV access at [facility] and we will see if we can appeal for patientto come to our center for infusions. A. Disease modifying therapy and diagnostic plan: -Continue Tysabri per [facility] protocol (getting her infusion in [facility]) -She is due for annual MRI of brain and cervical spine without contrast and orders will be entered today. Tysabri monitoring protocol While a patient is JAMILA virus antibody (JCV Ab) negative and on Tysabri we will check the JCV Ab status every 6 months. ??If the JCV Ab remains negative or JCV Ab positive with an index value 0-0.4, wewill monitor brain MRIs annually (without contrast), unless clinically indicated sooner. ?? If the JCV Ab is positive with an index value between 0.4 and less than or equal to 1.5 the JCV Ab index will continue to be tested every 6 months and MRIs will be done every 6 months with and without contrast, unless clinically indicated sooner as the risk of progressive multifocal leukoencephalopathy (PML) is low. ?? If the JCV Ab is positive with an index value between 0.9 and 1.5 it will ??be checked every 6 months and MRIs will be done every 6 months. If the JCV Ab is positive with an index value >1.5, Tysabri will likely be discontinued after discussions with the patient given the increased risk of PML (in this case, if a patient decides to continue Tysabri despite the known risk of PML, the JCV Ab index value will be checked every 4 months and a brain MRI with and without contrast will be done every 4 months). ?? If the patient has ever been treated with chemotherapeutics in the past, Tysabri will be discontinued, regardless of the index value, if they becomes JCV Ab positive. ?? B. Symptomatic therapy plan: Urinary symptoms: Had previous trial of Gemtesa but did not tolerate it well, declines second neurological opinion for now. Continue to monitor. Fatigue: She remains off of Provigil. We will continue to monitor fatigue. Positive MAGALY (1:1280):saw rheumatology no concerning finding Patient was encouraged to call the office with any questions or concerns. Follow up in 4 months or sooner PRN w new symptoms The patient and I discussed the clinical picture during today's appointment. Additional time was spent prior to the actual appointment reviewing records, lab values and imaging results and preparing documentation for today's visit. There was also time spent following the in person visit documenting, arranging for further diagnostic testing and follow-up appointments. The entire time spent in thisprocess was greater than 30 minutes. The majority of the actual iydf-tv-zdrb visit was spent counseling the patient with respect to the current neurological picture. Kalina Gomez PA-C Cc: Dr. Castillo documented in this encounter Plan of Treatment Upcoming Encounters Date Type Department Care Team (Late st Contact Info) Description 05/01/2025 8:30 AM EST Office Visit [facility] [address] [phone] Kalina Gomez PA [address] [place] [phone] 10/15/2025 8:30 AM EDT Office Visit [address] [phone] Kalina Gomez PA [address] [place] [phone] documented as of this encounter Visit Diagnoses Not on filedocumented in this encounter Care Teams Color Artist Relationship Specialty Start Date End Date Norberto Castillo MD [address] [place] [address] [address] [facility] [place] [address] PCP - General Internal Medicine 01/01/22 documented as of this encounter
[2025-03-15 13:39] VITALS: BMI 36.5
--- NOTE | 2025-03-15 13:39 | A.OFFVIS_ITS ---
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 Patient reports she took a fall in July,. Since, she has been experiencing occasional pain on the dorsal aspect of her left thumb. She denies any pain today, numbness, tingling, or finger locking. She is not taking anything for pain at this time. She denies any previous injuries or surgeries to the left hand. Allergies oxycodone Adverse Reaction (Intermediate, Verified 03/15/25 13:39) dizzy HPI HPI SOFTWARE CLIENT ARCHITECT-Pain in left hand: Details: Linette is a 50 year old right hand dominant female who presents today as a New Patient for evaluation of Left Hand Pain. Patient reports she took a fall in A 2024. Since, she has been experiencing occasional pain on the dorsal and ulnar aspect of her left thumb. The patient states that she feels that the MCP joint and under left thumb is ?loose?, and that be thumb feels unstable with movement. She denies any pain today, numbness, tingling, or finger locking. She is not taking anything for pain at this time. She denies any previous injuries or surgeries to the left hand. [facility] Medical History Colon cancer screening School health examination Annual physical exam Kidney stone Allergic reaction Leukopenia Optic neuritis Multiple sclerosis Surgical History Varicose veins of both lower extremities Uterine polyp History of section H/O arthroscopy of left knee Family History Father Myocardial infarction Mother No problems noted. Paternal Aunt Breast cancer Heart disease Maternal Grandmother No problems noted. Paternal Uncle Heart disease Social History Housing: House Alcohol intake: current Alcohol intake frequency: a few times a week Comment: 5x a week 1 glass. stopped 07/2024 Patient Tobacco Use Status: Never used Tobacco Tobacco use type: Cigarette Years Smoked: occ CBD e-Cigarette/Vaping Use: Never Used Second Hand Smoke Exposure: No service: No Current occupational status: unemployed Cognitive needs: No Hearing needs: No Vision needs: Yes Review of Systems Const All systems reviewed & are unremarkable except as noted in HPI and below Physical Exam Vital Signs: BMI result Body Mass Index 36.5 Extrem Other: Patient is alert, oriented, and in no acute distress. Neuro: Normal sensation of the tips of all digits of the left hand at this time Vascular: Cap refill brisk Pain: No tenderness to palpation about the MCP joint of the left thumb No tenderness to palpation about basal joint or IP joint of the left thumb No pain with range of motion of the left thumb ROM: Patient is able to flex and extend all digits of the left thumb fully However, there is significant laxity noted of the ulnar aspect of the MCP joint with varus and valgus testing Good end point noted of the radial aspect of the MCP joint of the left thumb Skin: No lacerations or abrasions. General: No ecchymosis, erythema, or evidence of infection. There is a mass like palpable deformity in the ulnar aspect of the left thumb consistent with potential Stener lesion Psych: Appears grossly normal Affect normal Attitude cooperative Results Reviewed Results Reviewed: X-rays obtained in the office today and independently reviewed by me, Abdiel Zelaya PA-C, demonstrate radial subluxation of the MCP joint of the left thumb. Assessment & Plan Assessment & Plan (1) Complete tear of ulnar collateral ligament of metacarpophalangeal (MCP) joint of finger: Code(s): S63.659A - Sprain of metacarpophalangeal joint of unspecified finger, initial encounter Category: Medical Plan 1. UCL tear of the left thumb Date of injury 08/06/2024 Patient is educated about this condition Patient is educated about the typical treatment course At this time, patient is referred to Dr. Varghese for discussion of any potential treatment options for this UCL tear, as the injury did occur 7 months ago and there is likely some form of ligament degradation at this point In the meantime, patient is provided with a Velcro thumb spica splint to be worn when her thumb is bothering her whenever she is going to be performing heavy activity with her left hand Patient understands this and is amenable to this plan Follow-up in 4-[address] Varghese for reassessment of UCL tear, sooner with any acute concerns Orders: Orders XR hand LT min 3V Today M79.642 - Pain in left hand Coding Level of Care Code New Pt Level 3 (81571) Diagnoses Complete tear of ulnar collateral ligament of metacarpophalangeal (MCP) joint of finger S63.659A
--- OUTSIDE RECORDS SUMMARY | 2025-03-15 14:01 | XMS_ITS | Clinical Summary ---
Author Organization [facility] Address [address] [place] [address] Phone Care Team Providers Care Environmental Lead Name Role Phone Norberto Castillo MD Primary Care Provider Allergies No known active allergies Medications No known medications Active Problems No known active problems Encounters Date Type Department Care Team Description 03/05/2025 1:30 PM EST Office Visit [address] [address] Aysha, Fabienne, DO Harman, Jessica Bonnie, PT Urinary urgency (Primary Dx); Urinary frequency 02/12/2025 1:30 PM EDT Office Visit [address] [address] Aysha, Fabienne, DO Harman, Jessica Bonnie, PT Urinary urgency (Primary Dx); Urinary frequency 02/05/2025 1:30 PM EDT Office Visit [address] [address] Aysha, Fabienne, DO Harman, Jessica Bonnie, PT Urinary urgency (Primary Dx); Urinary frequency 01/29/2025 1:30 PM EDT Office Visit [address] [address] Aysha, Fabienne, DO Harman, Jessica Bonnie, PT Urinary urgency (Primary Dx); Urinary frequency 01/22/2025 1:30 PM EDT Office Visit [address] [address] Fabienne Olmstead DO Wolk, Rachel Grace, PT Urinary urgency (Primary Dx); Urinary frequency 01/18/2025 Transcribe Orders [facility] [address] [place] [address] Fabienne Olmstead DO Encounter for rehabilitation (Primary [...] Orientation Not on file Plan of Treatment Health Maintenance Due Date [...] 2020 INFLUENZA VACCINE (#1) 2024 COVID-19 VACCINE (1 - 2024-2 6 season) 2024 PNEUMOCOCCAL VACCINES (50+ y ears) (1 of 1 - PCV) 2025 ZOSTER VACCINES (1 of 2) 2025 RSV VACCINE (1 - 1-dose 75+ series) 2050 HEPATITIS A VACCINES Aged Out No long [...] Date/Time Associated Diagnosis Comments AMB REFERRAL TO [facility] Routine 01/22/2025 2:21 PM EDT Encounter for rehabilitation from Last 3 Months Results * Ambulatory referral to [facility] Physical Therapy (01/22/2025 2:21 PM EDT) Other Fabienne Olmstead DO [facility]B [facility] REFERRALS Final Re sult from Last 3 Months Insurance [employer] [facility] PPO [employer] [place] [facility] PPO [place]UE [place] OUT OF STATE PPO [place] OUT OF STATE PPO BL[place] OUT OF STATE PPO [place]UE [place] OUT OF STATE PPO Care Teams Environmental Lead Relationship Specialty Start Date End Date Norberto Castillo MD [address] [place] [phone] PCP - General Internal Medicine 06/25/24 Additional Source Comments The information contained in this document represents components of the legal health record. It is not the complete legal health record.[facility]
--- OUTSIDE RECORDS SUMMARY | 2025-03-15 14:01 | XMS_ITS | Clinical Summary ---
Author Organization [facility] Address [address] [place] [address] Care Team Providers Care Financial Center Manager Name Role Phone Po, Norberto SUAREZ Primary Care Provider [phone] Allergies Active Allergy Reactions Criticality Noted Date [...] DAYS NEEDED FOR MOTION SICKNESS 4 Active trospium 60 mg capsule,extend ed release 24hr 5 Active escitalopram (Lexapro) 10 mg tablet 1/2 po qd x 1 week, then 1 po qd 30 each 5 5 Active SUMAtriptan (IMITREX) 100 mg tablet Take 1 tablet (100 mg total) by mouth 1 (one) time if needed for migraine. 9 tablet 1 5 Active Encounters Date Type Department Care Team Description 12/26/2024 8:30 AM EDT Office Visit [facility] [address] [place] [address] Kalina Gomez PA Multiple sclerosis (CMS/HCC V24, CMS/[facility] V28) (Primary Dx) from Last 3 Months Immunizations Immunization Administration [...] MS (multiple sclerosis) DX:MS (m ultiple sclerosis) ([facility]) Family History Medical History Relation [...] Description 05/01/2025 8:30 AM EST Office Visit [facility] 175 [facility] [address] [place] [phone] Kalina Gomez PA [address] [place] [phone] 10/15/2025 8:30 AM EDT Office Visit [facility] 175 [facility] [address] [place] [phone] Kalina Gomez PA [address] [place] [address] Health Maintenance Due Date Last Done Comments Breast Cancer Screening 1975 Colorectal Cancer Screening: Colonoscopy 1975 Hepatitis B Vaccines (1 of 3 - 19+ 3-dose series) 1994 Cervical Cancer Screening: Pap Smear 1996 HIV Screening 04/03/2022 Hepatitis C Screening 04/03/2022 Social Influencers of Health Screening 04/03/2022 Depression Screening 04/25/2024 COVID-19 Vaccine ( season) 2024 01/15/2024, 02/12/2023, 01/16/2022, Additional history exists Influenza Vaccine (#1) 2024 , 02/12/2023, 01/23/2022, Additional history exists Pneumococcal Vaccine: 50+ Years (2 of 2 - PCV) 2025 03/13/2020 Zoster Vaccines (1 of 2) 2025 DTaP,Tdap,and Td Vaccines (4 - Td or Tdap) 09/10/2032 09/10/2022, 04/28/2020, 05/24/2012 RSV Immunization Adult Patients (1 - 1-dose 75+ series) 2050 HIB Vaccines Aged Out No longer eligi [...] patient's age to complete this topic Insurance [facility] [place] [id number] [facility] COMMERCIAL GENERIC Care Teams Financial Center Manager Relationship Specialty Start Date End Date Norberto Castillo MD [address] [facility] [place] [address] PCP - General Internal Medicine 01/01/22
--- OUTSIDE RECORDS SUMMARY | 2025-03-15 14:01 | XMS_ITS | Patient Health Record ---
Author Organization [facility] Address [address] [place] [address] Care Team Providers Care Regulatory Internship Name Role Phone Norberto Castillo MD Primary Care Provider Carlitos Boyer [phone] Allergies No Known Allergies Reason For Referral No Information Medications Medication SIG (Take, Route, Frequency, Duration) Notes Start Date End Date Status Fish Oil Active Vienva 0.1-20 MG-MCG Tablet Oral; Duration: 28 Active Tysabri 300 MG/15ML Concentrate as directed Intravenous 05/12/2022 Acti ve Immunizations Vaccine Route Administration Date Status Comme nts Influenza Unknown 01/23/2022 Administered Social History Tobacco Use: Social History Observation Description Date Details (start date - stop date) Never Smoker NA - NA Social History Drugs/Alcohol: Social Info Question Answer Notes Alcohol Screen Did you have a drink containing alcohol in the past year? Yes How often did you have a drink containing alcohol in the past year? 4 or more times a week (4 points) How many drinks did you have on a typical day when you were drinking in the past year? 1 or 2 drinks (0 point) How often did you have 6 or more drinks on one occasion in the past year? Never (0 point) Points 4 Interpretation Positive Tobacco Use: Social Info Question Answer Notes Tobacco Use/Smoking Patient is a nonsmoker Additional Details Category Social Info Options Details Miscellaneous: Marital status: Occupation: Not working Section Notes: Nonsmoker; no sig alcohol Problems Problem Type SNOMED Code ICD Code Onset Dates Problem Status W/U Status Risk Notes Problem Screening for malignant neoplasm of colon (013162374) Screen for colon cancer (Z12.11) Active confirmed Problem Preprocedural examination (094737667713559) Preprocedural examination (Z01.818) Active confirmed Problem Diverticulosis of colon (070297922) Diverticulosis of colon (K57.30) Active confirmed Plan Of Treatment Future Test Test Name Order Date COLONOSCOPY 05/12/2022 Insurance Providers Payer Name Payer Address Payer Phone Subscriber Number Group Number Insured Name Patient Relationship to Insured Coverage Start Date Coverage End Date [facility] [address] [place] [address] [id number] RELL MAHER Self - patient is the insured Medical (General) History Medical History History ICD Code Kidney stones Multiple sclerosis-for 4 years-sees Dr. Samuels at [facility] Denies MT,DM,CVA,Lung disease,renal dise ase Surgical History Surgery Date(Month/Year)
--- OUTSIDE RECORDS SUMMARY | 2025-03-15 14:01 | XMS_ITS | Clinical Summary ---
Author Organization [facility] Address [address] [place] [address] Care Team Providers Care Director [employer] Name Role Phone Norberto Castillo MD Primary Care Provider [phone] Allergies Active Allergy Reactions Criticality Noted Date Comments [place] Other (See Comments) 07/05/2022 Kiwi 07/05/2022 ALMONDS Oxycodone-Acetaminophen 02/18/2022 Medications Medication Sig Dispensed Refills Start Date End Date Status Vienva 0.1-20 MG-MCG per tablet Take 1 tablet by mouth daily. 0 05/06/2022 Active Natalizumab (TYSABRI IV) Inject into the vein. 0 Active [place]-3 Fatty Acids (Fish Oil) 1000 MG CAPS [...] Screening (Colonoscopy) 2020 Influenza Vaccine (#1) 2024 Breast Cancer Screening (Mammogram) 2025 Shingrix-Zoster Vaccine (1 of 2) 2025 Pneumococcal Vaccine Aged Out No long er eligible based on patient's age to complete this topic RSV Ped < 20 months Aged Out No longe r eligible based on patient's age to complete this topic Care Teams Director [employer]r Communications Relationship Specialty Start Date End Date Norberto Castillo MD [address] [place] [address] [address] [facility] [place] [address] PCP - General Internal Medicine 01/01/22
== END 2025-03-15 14:23 | disposition home or self-care (01) ==
LOC: HO.HOS 13:37
PROVIDERS: PCP Internal Medicine
DX: S63.659A Sprain of metacarpophalangeal joint of unspecified finger, initial encounter (principal)
CPT/HCPCS: 99203

== ENCOUNTER → 2025-03-15 13:55 | Outpatient (BNV) | payer BC, SELFPAY | PROVIDERS: PCP Internal Medicine; Visit Provider Radiology Diagnostic Radiology | DX: M79.642 Pain in left hand (principal) | CPT/HCPCS: 73130 ==